=== PATIENT | female | born 1960 | race Caucasian/White ===

== ENCOUNTER 2023-10-25 11:01 | Outpatient (OUT) | payer OTHER, SELFPAY ==
--- NOTE | 2023-10-25 11:05 | MM_ITS ---
Patient Name: MIRI CONTRERAS MR#: [id number] : 1960 Exam Date: 10/25/2023 Ordering Doctor: DR DEYSI MONTES [facility] REPORT PROCEDURE: MM TOMOSYNTHESIS SCREENING BI COMPARISON: MG MAMM SCREEN 3D JACY CAD, 10/22/2022. MG MAMM SCREEN 3D JACY CAD, 10/16/2021. MG MAMM SCREEN JACY W CAD, 10/14/2020. MG MAMM JACY SCRN W CAD DIG, 09/04/2013. INDICATIONS: Screening Calculator Name NCI Breast Cancer Risk Assessment Tool 5 Year Breast Cancer Risk 3.20% Lifetime Breast Cancer Risk 12.40% Personal Breast Cancer No Personal Ovarian Cancer No Treatments None Family Cancers Mother with breast cancer at age 79; Mother with lung cancer at age 82. LOCATION: [facility] BREAST COMPOSITION: Heterogeneously dense,which may obscure small masses. FINDINGS: DIAGNOSTIC CATEGORY 1--NEGATIVE. RIGHT BREAST: No significant suspicious finding. No significant change has occurred. LEFT BREAST: No significant suspicious finding. No significant change has occurred. RECOMMENDATIONS: ROUTINE MAMMOGRAM AND CLINICAL EVALUATION IN 12 MONTHS. PLEASE NOTE: A NORMAL MAMMOGRAM DOES NOT EXCLUDE THE POSSIBILITY OF BREAST CANCER. A CLINICALLY SUSPICIOUS PALPABLE LUMP SHOULD BE BIOPSIED. Dictated by: Alirio Barba M.D. on 10/25/2023 at 14:23 Approved by: Alirio Barba M.D. on 10/25/2023 at 14:25
== END 2023-10-25 11:02 | disposition home or self-care (01) ==
LOC: MAMMO 11:01
PROVIDERS: PCP Family Medicine; Visit Provider Obstetrics & Gynecology
DX: Z12.31 Encounter for screening mammogram for malignant neoplasm of breast (principal); Z80.3 Family history of malignant neoplasm of breast; Z80.1 Family history of malignant neoplasm of trachea, bronchus and lung
CPT/HCPCS: 77063; 77067

== ENCOUNTER 2024-10-26 10:28 | Outpatient (OUT) | payer MEDICARE, SELFPAY ==
--- NOTE | 2024-10-26 10:31 | MM_ITS ---
Patient Name: MIRI CONTRERAS MR#: [id number] : 1960 Exam Date: 10/26/2024 Ordering Doctor: DR DEYSI MONTES [facility] REPORT PROCEDURE: MM TOMOSYNTHESIS SCREENING BI COMPARISON: MM TOMOSYNTHESIS SCREENING BI, 10/25/2023. MG MAMM SCREEN 3D JACY CAD, 10/22/2022. MG MAMM SCREEN 3D JACY CAD, 10/16/2021. MG MAMM JACY SCRN W CAD DIG, 09/04/2013. INDICATIONS: Screening Calculator Name NCI Breast Cancer Risk Assessment Tool 5 Year Breast Cancer Risk 3.30% Lifetime Breast Cancer Risk 12.00% Personal Breast Cancer No Personal Ovarian Cancer No Treatments None Family Cancers Mother with breast cancer at age 79; Mother with lung cancer at age 82. LOCATION: [facility] BREAST COMPOSITION: There are scattered areas of fibroglandular density. FINDINGS: RIGHT BREAST: No significant suspicious finding. LEFT BREAST: No significant suspicious finding. DIAGNOSTIC CATEGORY 1--NEGATIVE. NO CHANGE FROM COMPARISON ASSESSMENT. RECOMMENDATIONS: ROUTINE MAMMOGRAM AND CLINICAL EVALUATION IN 12 MONTHS. PLEASE NOTE: A NORMAL MAMMOGRAM DOES NOT EXCLUDE THE POSSIBILITY OF BREAST CANCER. A CLINICALLY SUSPICIOUS PALPABLE LUMP SHOULD BE BIOPSIED. Dictated by: Farhat Block DO on 10/26/2024 at 15:22 Approved by: Farhat Block DO on 10/26/2024 at 15:26
--- OUTSIDE RECORDS SUMMARY | 2024-10-26 10:46 | XMS_ITS | CCD ---
Author Organization [facility] Care Team Providers Care Materials Coordinator Name Role Phone LEANNA, DR ALIRIO Weston Consulting Unavailable CLARIBEL, DR DOMINGO Primary Care Unavailable FALGUNI, DR JO Attending Unavailable PRINTY, DR JO Admitting Unavailable PRINTY, DR JO Consulting Unavailable Radha BRENNER, Chalrotte Munroe Primary Care Provider Deysi Ferrer MD Unavailable DEYSI FERRER Attending Unavailable CHHAYA ALVARADO Attending Unavailable DEYSI FERRER Attending Unavailable PRINTYDEYSI Attending Unavailable Gonya, Charlotte Primary Care Unavailable Sher PAC, Andrey N Admitting Unavailable Sher PAC, Andrey N Attending Unavailable ISSAC Dutton Admitting Unavailable Gonya, Charlotte Primary Care Unavailable Nacho Lange Attending Unavailable Gonya, Charlotte Primary Care Unavailable Gonya, Charlotte Admitting Unavailable Gonya, Charlotte Attending Unavailable Gonya, Charlotte Primary Care Unavailable Gonya, Charlotte Admitting Unavailable Gonya, Charlotte Attending Unavailable Gonya, Charlotte Primary Care Unavailable Gonya, Charlotte Attending Unavailable Gonya, Charlotte Attending Unavailable Gonya, Charlotte Primary Care Unavailable Gonya, Charlotte Attending Unavailable Gonya, Charlotte Primary Care Unavailable Allergies Allergy Classification Reported Allergen(s) Allergy Type Date of Onset Reaction(s) Facility (14 sources) Amoxicillin Drug Allergy 4 Unknown [facility] (15 sources) Codeine; Translations: [codeine] Drug Allergy 7 Other, Unknown [facility] (9 sources) Amoxicillin-Pot Clavulanate Drug Allergy 3 GI intolerance, Nausea Only, Unknown [facility] (1 source) Amoxicillin / Clavulanate; Translations: [Augmentin] Drug Allergy [facility] Repository Medications Current Medications Medication Drug Class(es) Dates Sig (Normalized) Sig (Original) [id number] 200 actuat albuterol 0.09 mg/actuat metered dose inhaler (14 sources) beta2-Adrenergic Agonist Start: 02-05-2023 take 1 puff(s) by mouth every six hours as needed for wheezing albuterol HFA 90 mcg/act inhaler INHALE 1 PUFF BY MOUTH EVERY 6 HOURS NEEDED FOR WHEEZING 02/05/2023 Active beta carotene 15 mg oral capsule (14 sources) Start: 10-04-2022 beta carotene (Vitamin A) 15 MG capsule 15 mg 10/04/2022 Active estradiol 0.01 mg vaginal insert (7 sources) Estrogen Start: 10-13-2024 estradiol (Vagifem) 10 MCG tablet vaginal tablet Indications: Postmenopausal atrophic vaginitis 1 tab intravaginally twice a week 24 tablet 3 10/13/2024 Active Start: 10-13-2024 estradiol (Vag ifem) 10 MCG tablet vaginal tablet Indications: Postmenopausal atrophic vaginitis 1 tab intravaginally twice a week 24 tablet 3 10/13/2024 Active Start: 07-22-2024 End: 10-13-2024 estradiol (Vagifem) 10 MCG t ablet vaginal tablet Indications: Postmenopausal atrophic vaginitis 1 tab intravaginally twice a week 24 tablet 3 07/22/2024 10/13/2024 Discontinued (Reorder) fluticasone propionate 0.05 mg/actuat metered dose nasal spray (8 sources) Corticosteroid Start: 03-09-2024 take 1 spray(s) nasal route twice daily fluticasone (Flonase) 50 MCG/ACT nasal spray USE 1 SPRAY(S) IN EACH NOSTRIL TWICE DAILY FOR 7 DAYS 03/09/2024 Active 30 actuat fluticasone furoate 0.1 mg/actuat / umeclidinium 0.0625 mg/actuat / vilanterol 0.025 mg/actuat dry powder inhaler (16 sources) Anticholinergic, Corticosteroid, beta2-Adrenergic Agonist Start: 05-25-2024 End: 05-25-2025 take 1 puff(s) by inhalation once daily Fluticasone-Umecl idin-Vilant (Trelegy Ellipta) 100-62.5-25 MCG/ACT aerosol powder Indications: Moderate persistent asthma with acute exacerbation (CMS/HCC) Inhale 1 puff Daily 1 each 05/25/2024 05/25/2025 Active Start: 08-13-2023 End: 08-12-2024 take 1 puff(s) by inhalation in the morning Biuinwfnngg-Hmbmsgciu-Pfjdfn (Trelegy Ellipta) 100-62.5-25 MCG/ACT aerosol powder Indications: Moderate persistent asthma with acute exacerbation (CMS/HCC) Inhale 1 puff in the morning. 1 each 08/13/2023 05/25/2024 Discontinued (Reorder) ipratropium bromide 0.042 mg/actuat metered dose nasal spray (14 sources) Anticholinergic Start: 09-25-2023 End: 12-24-2023 take 2 spray(s) nasal route in the morning, then take 2 spray(s) nasal route in the evening, then take 2 spray(s) nasal route at bedtime ipratropium (Atrovent) 0.06 % nasal spray Indications: Chronic rhinitis Administer 2 sprays into each nostril in the morning and 2 sprays in the evening and 2 sprays before bedtime. 15 mL 11 09/25/2023 Active Lactobacillus (14 sources) Start: 10-04-2022 take 1 tablet by mouth in the morning Lactobacillus (Acidophilus Probiotic) 10 MG tablet Take 1 tablet by mouth in the morning. 10/04/2022 Active Start: 10-04-2022 take 1 tablet by sharla th in the morning Lactobacillus (Acidophilus Probiotic) 10 MG tablet Take 1 tablet by mouth in the morning. 0 10/04/2022 Active levocetirizine dihydrochloride 5 mg oral tablet (8 sources) Histamine-1 Receptor Antagonist Start: 03-09-2024 take 1 tablet by mouth in the evening levocetirizine (Xyzal) 5 MG tablet TAKE 1 TABLET BY MOUTH IN THE EVENING FOR 14 DAYS 03/09/2024 Active levothyroxine sodium 0.05 mg oral tablet (14 sources) l-Thyroxine Start: 06-12-2022 take 1 tablet by mouth once daily levothyroxine (Synthroid, Levoxyl) 50 MCG tablet 1 tab(s), PO, Daily, # 30 tab(s), 0 Refill(s), Pharmacy: [id number], 1 tab(s) PO Daily 06/12/2022 Active lisinopril 10 mg oral tablet (14 sources) Angiotensin Converting Enzyme Inhibitor take 1 tablet by mouth twice daily lisinopril 10 MG tablet take 1 tablet (10MG) by Oral route 2 times every day Oral Active predniSONE 20 mg oral tablet (11 sources) Start: 10-09-2023 End: 07-22-2024 take 1 tablet by mouth once daily predniSONE (Deltasone) 20 MG tablet Indications: Moderate persistent asthma with acute exacerbation (CMS/HCC) TAKE 1 TABLET BY MOUTH ONCE DAILY FOR 5 DAYS 10 tablet 10/09/2023 07/22/2024 Discontinued (Ineffective) Start: 01-08-2023 take 1 tablet by sharla th once daily predniSONE (Deltasone) 20 MG tablet TAKE 1 TABLET BY MOUTH ONCE DAILY FOR 5 DAYS 0 01/08/2023 Active simvastatin 4 mg/ml oral suspension (14 sources) HMG-CoA Reductase Inhibitor Start: 09-03-2022 Simvastatin 20 MG/5M L suspension 09/03/2022 Active triamcinolone acetonide 1 mg/ml topical cream (20 sources) Corticosteroid Start: 10-13-2024 End: 10-13-2025 triamcinolone (Kenalog) 0.1 % cream Indications: Lichen sclerosus et atrophicus Apply topically Daily 28 g 2 10/13/2024 10/13/2025 Active Start: 06-10-2024 End: 06-10-2025 triamcinolone (Kenalog) 0.1 % cream Indications: Lichen sclerosus et atrophicus Apply topically Daily 30 g 2 06/10/2024 10/13/2024 Discontinued (Reorder) Start: 05-25-2024 End: 06-06-2024 triamcinolone (Kenalog) 0.1 % cream Indications: Allergic contact dermatitis due to plants, except food Apply topically 2 (two) times a day for 12 days Do not apply to face. 45 g 2 05/25/2024 06/06/2024 Active Start: 11-16-2022 End: 06-10-2024 Triamcinolone Acetonide 0.02 5 % lotion APPLY LOTION TO AFFECTED AREA ON NECK AND ARMS TWICE DAILY FOR 14 DAYS. AVOID FACE AND GROIN 11/16/2022 06/10/2024 Discontinued Problems Problem Classification Problem Date Documented Date Episodic/Chronic Allergic reactions (16 sources) Flexural atopic dermatitis; Translations: [Other atopic dermatitis] Onset: 01-21-2023 01-21-2023 Chronic Allergic reactions (2 sources) Allergic contact dermatitis caused by plant material; Translations: [Allergic contact dermatitis due to plants, except food] 05-25-2024 Episodic Asthma (18 sources) Exacerbation of moderate persistent asthma; Translations: [Moderate persistent asthma with (acute) exacerbation] Onset: 01-21-2023 01-21-2023 Chronic Menopausal disorders (4 sources) Atrophic vaginitis; Translations: [Postmenopausal atrophic vaginitis] 07-22-2024 Chronic Other female genital disorders (2 sources) Pain in female genitalia on intercourse; Translations: [Unspecified dyspareunia] 07-22-2024 Chronic Other female genital disorders (2 sources) Vaginal irritation; Translations: [Other specified noninflammatory disorders of vagina] 06-10-2024 Episodic Other inflammatory condition of skin (4 sources) Pruritus of vulva; Translations: [Pruritus vulvae] 06-10-2024 Episodic Other nervous system disorders (2 sources) Impairment of balance; Translations: [Other abnormalities of gait and mobility] 05-25-2024 Episodic Other screening for suspected conditions (not mental disorders or infectious disease) (8 sources) Encounter for screening mammogram for malignant neoplasm of breast; Translations: [Cancer cervix screening status] Onset: 10-22-2022 Episodic Other skin disorders (6 sources) Lichen sclerosus et atrophicus; 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-2024 Chronic Other upper respiratory infections (2 sources) Viral upper respiratory tract infection; Translations: [Acute upper respiratory infection, unspecified] 05-25-2024 Episodic Residual codes; unclassified (1 source) Family history of malignant neoplasm of breast; Translations: [FAMILY HX MALIG NEOPLASM OF BREAST] Onset: 10-25-2022 Episodic Results Test Name Value Interpretation Reference Range Facility Coding Summaryon 07-14-2024 Coding Summary HTMLBase 64 VdvjemadGQa5uJu+PGhlY WQ+WB8DKDJoA14upCDopU 9vL5XFFXcTMpbzHOXSVFx ZPnZxumIgDZ4quZJoOTTm IC8+EV8zLFCyLtxvpDWsl 2V2qAK1F94dyv2zVBtibD U2NUXmNuRmeviez7fljXl 6IDcuNmluOyBt FPRqeT21SNA7kU98Br54x SMifCMdp1jdhTn3NfQnIP ItTDV5zOgxHMjar6BzJKF wS70osMXmr4D4 LCVivHhbbYFnCdRtdUK8t D1oZPpbgzfzk6qiyombXy c1lj92nMGds6T3eDJ4X4P jcxK6CVTnzHVz PlbcwSCVaJ5ihzjpn5bzi xisUiRqBQKbFOb5WKs3LB ZweMdkXcPzUM96OCT6SOO ocxEqE7KvKDLq gXftLwJ1m9P8Bg1BB9CYC vhhY2GHAIZCDTmdkZR+PC 54nq28D2DrZtrcZgv9YYH uGMO2zJF4xH1o NQNxIRjjr3E1wRY4T7Uyp vBppu1me6wsVVVvGJmkB9 8taMFab2M2KQIkyRG2VYH vqUcbQuTwxO61 Oyc+CNOpcQejt8HrDhjwz 0ioz7hjyNe8ZfwsSZNgjw SpsObvHFP9k2IaOz7cWGK ewTF2gEC5pF3j SvErQyV8WClqX971EaBwk QCtVzxwC68uG4GsiQS+PH ArFzl8PBNleGywAN6wC4C hZGRpbmctbGVm ySpuAF8wALCytuymMONlf A3xIZIsJ9f4FdUfPzH5FB rpS6XwMXKwwpvcLh11kM3 oFyOzQqO4JNdf Z6HtstP6KIBeyRZbAQzsI NU0J47ce8J9BMVzKAUlHA T3bCZ3lI6knKkkaidcmUO mdDsgdmVydGlj FNrwHZluH234VVZerLtdL kNvZGluZyBEYXRlOiAgMT EvMTIvMjAyNDwvdGQ+PHR uQHD5wJxvAXAj jMAcFKziLh1arInbxZdpA H4lLCYlwdhnWGQziO5oNH VpyYTbrPvhNP1tRGZaisp em942DlSpCTQ9 ZPHqoJXmB3ZrzT9eDhApL UZaOEGlP6TelAFwRVibO9 65EVnnAkY4UIGjhsRfQ0B sLWFsaWduOiB0 h2A3Ka2He0JgzpsbN2Gor FGfAxHhYadsLCq0T0KhRj wvdHI+IL24EURqNJ30ATp 3WBG6cLjpZBck QJYqE1ZgwN9uXdQhTRKdP GRkOyc+PHRhYmxlIHdpZH RoPScxMDAlJyBzdHlsZT0 yFy3bLYYiQBRo pCmmhPShEaLvw9maXSVrV IzmTE3ukFepM3UvsKR9CG Mdd4a1Vg72C27gC4NfhFB +HTYzdUC0cDX0 nA5mYgLiPrM1XSibC943L dCpmXKeQauoc2pon4bgbT s0MwC3FMOalqLnrFgtHLH 2t1WcWz88I18e IHdpZHRoPSIxNSUiIHZhb Ubadw3ayZ5sAw0+PGNvbC Q4hAV4mR2zYpTxWtX6PTe eU596SqTbyJGw Zvjbc8ors1qhiEr1TgVvJ QRpneMuhPtjYRM5a8WfLk 23X9ZbpKwby3XvCby4ff3 4kNBew9O3dFK4 L2AjOWNqxzlfdQUrbMrsA N6rXGUjonfpZBFrgC5wQR VsO2w1VqPfTfG2UMjtC8Q ybuX4NZSeoLMf NVJhaFTJbE7obrpvv8jtw colMaXrJJRfCVx9LVb5OL CrhKxcQoScQVY3TdP7YKX 5qOTmtE7bfCsz ewlvkA6nRlk+UJZ6nABqc SRCDL6vEzxqyHS+PHRkIH E1zSoaUXfvJXKpnV7qPKJ cS1e2XsKjDaL2 WUnmE0RvmdA6EGXlaUXkD TNplQANmS7ctcgcl0mexw arNlSoDBAgZTg2AOg1DVV saWduOiBsZWZ0 TuQ7XQB0bFCjjB6vaJzhd ogntF6nFzy+QmlydGggRG E3SDo3V3GjOya8HZQloSf hVI1zlFFxHDad Lx3eeXooaSdePT6xXICxg rfig037UtSze6ldVJLidS ZlRInqWOY9W48wh4W7FQI jUFKpXFR7cXA4 vE5fxDczstbjuBRpdAmqz kNhlXciXCpmXRicG384YS ExrRbxYlQbUIn4I6FtZcx 0PVWnfWwvUA9t uINmYSnaUr5kiPmzkFqqX T9mLUJfqxyxt216GqZxk6 lpATUlaJLgNZllWRD6I25 mh5I8EHCtFADf WFD2qIN0aN5ytSaqnotaf GVmdDsgdmVydGljYWwtYW hdH526MCEkjSjuDsPduRj 9Z9YdFsz5VIOl bXkjFL9qwGAdORduRf7yw MklwQldGC6jJKTrbvkzo2 64MpMln1mfTFEnzDFlJXb vYTN7O79xt4Y4 JZKxNIXmEDU2uBB2hA9gr GlnbjogbGVmdDsgdmVydG jvNFjtPYmzW894AVTfhLg nPlBhdGllbnQg ABxkEOi9X0PfErsftID+P R62UVPkVE65iJEqbZWii4 jccSd8JdIaGJTyQFY6dFm fZZmbo6HtCLWj P16nuMFst6L1RQYxhKtei DCuFkUggCG8cX1tOJpgbt uqp8hmxrcgBlwli8xsqn7 4pC14Z29zGFgs ZHRoPSIzMCUiIHZhbGlnb s5jdI5lQi4+TIPcmYA6eT W1hX5bHENqHjR8NXpmN27 9InRvcCIvPjxj x2cml6wjnDe6EbA7GBVmv aYrjLbcUTP3v9WmZd95R3 9sIHdpZHRoPSIyMCUiIHZ fgOqcpx4pjP8e Ii8+NQEpiEF1iQY4aM1rB eCoCmP8AUfbV626GrHmcC VlGuuvP00eQ5VefNU+PHR eAjq4VAYicNmu KX6vdMZbCLiuPh0bFMZ2R hLyErOsBIlkM0KeONAabc zuhgfhxKB4PKEaFXHxcG0 3Qc7grPsbTUDw xARJuJ2okzhek4isaidoR yAmQVLrUTk9RPj1MBZdrX gaOlJtHZV6VhW3GPN9yJB faW8obCibvwuw fQ9vJ4MwRNUzbscqTp39u Q4sLaBnNzP4OFcoDlx+Uk 2ZUQ4XRFCARGiYVLVZKE2 6ME38mKOgw4R6 oGM5E0HmNIDlyiikublsr PN3WHHdYZXrvO69uGMnOK bfCg3pv8C8i175WRAoMZO seH24Fn4yrXsr GBZtdZBAjE6cverno8ohp gzwRaIsVQSaYMd5UTj2HY PcyRhsLwNeOUW6TgY6RMC 3xEAcrD4maKra gsjfcD8kKhh+MDUvMjcvM Xh0LShzpYJ+XDCuGVQ0gI ckPCafWPXxhJ2xFQUeW9v 7AkUgRcU8RKkq X0WtGFSbqyxiUh52jB7wM tSzQoH0ODiyM1KxzoY0QV TutZShKSihQIB6J58ri9X 4NTViOBRrCPS1 sJV0aB8tzUnrjddtfWQcy DsgdmVydGljYWwtYWxpZ2 52OSJcoNivLzK4WAknNTA zNY00MA37kFWz l8E4pSI5C8BjBQLsjymxs kwmzTN3UKEfLBJmfC19fV IcUDfbSj0ta0Y2d584OKA aPGRayH18Ex4m dColZLXraFYAlI8mqctpk 3skrmwyBaQrRLRlLGq1NA b1JSVdnYrbIqHmYJU1WtH 1TLW8wHXvwV1y sOxblcujaT3jPoo+RkVNQ OcTEL12IS81xSTyu1P9fP V0U6NpDHWahtsieleqdRB 4VUQeSZTsfD87 eXXpDXycLy5lu0K8g889W AYfOYCsgP99Kq8faFqfVK TepIBLhV4nqwbdi6yaebv gIzAwMDAwMDt0 OHp5SOTnvWfiGsDkLAB8L dU8UPX3tDSovR7muGfvqt bdjS9jRli+Z7F7Y4ZuGxt vdHI+TQ76UVQe OC06hHGfrZWcc4mplIy8Q qJqLEStAHN6aMwsYQuqg3 AiXWScS47qpAQty9O1NGD vbGxhcHNlOyBl wXE5eE3wDTsrctysm7uto pyeEageb5fpic48jI17T7 9sIHdpZHRoPSIzMCUiIHZ vgKzjmu3sqY6o Ii8+JGLozUE0oDH4eV3gW iCuHiZ6MLekP210IsKgyX EpVilui7ipg9qinPj0WkW wJSIgdmFsaWdu DYF2d0XwBb39Y54vOQfqQ HRoPSIyMCUiIHZhbGlnbj 1haK8xYx2+HF2dy8ztee7 5qD18lVI+PHRk ASJ3tHxnHBrtJWWdkT3xZ PyaYxL0KRKeMoOliT09wG OvMCjkVb6sjRbqgLopSA7 bCOIrfmlav637 JhNmr5ayASFkwRMzXSsbP KA3U52au2S2CWGmMYXuGR L3bVY0uT7axEuaukmkwBZ mdDsgdmVydGlj GDdnZVlqJ219NHIzlBkoZ bPafYOmK8xltbQVYD5sMc wvdGQ+NJYoZBV8xJihGYo aJYVryS1mLURr L1h4KjBsZbH4ZOvrZ4Xwc cM6NJKscTUqOETmnIYGcD 5qhluaj2twxpokZbIcJUC mZDi8THe1AEEx fHhqIoZhXRE8CqB7HQL0n VOurV4dqIsjarasjB4kYs c+RklOOjwvdGQ+PHRkIHN 0eWxlPSdwYWRk tK6fTJXvB0m6AaPxMkV8K ZnzC4VwqzH7SJNiiVFmRY AftNQDvH7apzgvk3vhhsz gIzAwMDAwMDt0 QYk9XRVjjRimHnNkUAX3P cB3IHU0kHEnnJ9zvGcham ldrN3lUxd+TVJOOjwvdGQ +PYYdIAG6bTqc OUynVIFvlE0cXGBfZ3p4B hJtHuG2JZztX1XdteY2TJ RryQKdLTVxhYYVbL2cdzr uw3yhaeksWyYv GVDpWIy3FRe4CBCapQbeP tQfUQM0LhD7UUK8aHWntB 4wmFaunhjzrU6qNvg+UGF 8MNG8YH06MZ14 K6GfHkxssHIbjAV+PHRhY mxlIHdpZHRoPScxMDAlJy FcgCjqZS5eNh6sOJRtJGW vbGxhcHNlOiBj b2x (more content not included)... Normal [facility] Standardon 07-08-2024 eGFR Non AA >60 Invalid Interpretation Code [facility] Comment on above: Performed By: #### 2 [id number], [id number], [id number] ####[facility] (DEFAULT)[address] [place] [address] eGFR AA >60 Invalid Interpretation Code [facility] Comment on above: Performed By: #### 2 [id number], [id number], [id number] ####[facility] (DEFAULT)[address] [place] [address] 86001 Albumin [Mass/Vol] 4.1 g/dL Normal 3.5-5.0 [facility] Comment on above: Performed By: #### 2 [id number], [id number], [id number] ####[facility] (DEFAULT)[address] [place] [address] 06120 Albumin/Globulin [Mass ratio] 1.5 {ratio} Normal 1.4-2.6 [facility] Comment on above: Performed By: #### 2 [id number], [id number], [id number] ####[facility] (DEFAULT)[address] [place] [address] 08810 Alk Phos 53 IU/L Normal 32-91 [facility] Comment on above: Performed By: #### 2 [id number], [id number], [id number] ####[facility] (DEFAULT)[address] [place] [address] 47047 ALT [Catalytic activity/Vol] 16.0 U/L Normal 14.0-54.0 [facility] Comment on above: Performed By: #### 2 [id number], [id number], [id number] ####[facility] (DEFAULT)[address] [place] [address] 54153 Anion gap [Moles/Vol] 11.0 mmol/L Normal 5.0-19.0 [facility] Comment on above: Performed By: #### 2 [id number], [id number], [id number] ####[facility] (DEFAULT)[address] [place] [address] 29422 AST [Catalytic activity/Vol] 19 U/L Normal 15-41 [facility] Comment on above: Performed By: #### 2 [id number], [id number], [id number] ####[facility] (DEFAULT)[address] [place] [address] 40839 Bili Total 0.9 mg/dL Normal 0.3-1.2 [facility] Comment on above: Performed By: #### 2 [id number], [id number], [id number] ####[facility] (DEFAULT)[address] [place] [address] 10866 Calcium [Mass/Vol] 9.3 mg/dL Normal 8.9-10.3 [facility] Comment on above: Performed By: #### 2 [id number], [id number], [id number] ####[facility] (DEFAULT)[address] [place] [address] 54672 Chloride [Moles/Vol] 104 mmol/L Normal 101-111 [facility] Comment on above: Performed By: #### 2 [id number], [id number], [id number] ####[facility] (DEFAULT)[address] [place] [address] 47049 CO2 [Moles/Vol] 26 mmol/L Normal 21-32 [facility] Comment on above: Performed By: #### 2 [id number], [id number], [id number] ####[facility] (DEFAULT)[address] [place] [address] 04688 Creatinine [Mass/Vol] 0.88 mg/dL Normal 0.60-1.30 [facility] Comment on above: Performed By: #### 2 [id number], [id number], [id number] ####[facility] (DEFAULT)[address] [place] [address] 23697 Globulin (S) [Mass/Vol] 2.7 g/dL Normal 1.5-4.3 [facility] Comment on above: Performed By: #### 2 987508, [id number], [id number] ####[facility] (DEFAULT)[address] [place] [address] 11838 Glucose [Mass/Vol] 92.0 mg/dL Normal 74.0-118.0 [facility] Comment on above: Performed By: #### 2 077039, [id number], [id number] ####[facility] (DEFAULT)[address] [place] [address] 40766 Osmolality 274 mOsm/L Invalid Interpretation Code [facility] Comment on above: Performed By: #### 2 [id number], [id number], [id number] ####[facility] (DEFAULT)[address] [place] [address] 47394 Potassium [Moles/Vol] 4.0 mmol/L Normal 3.6-5.1 [facility] Comment on above: Performed By: #### 2 375076, [id number], [id number] ####[facility] (DEFAULT)[address] [place] [address] 23805 Protein [Mass/Vol] 6.8 g/dL Normal 6.5-8.1 [facility] Comment on above: Performed By: #### 2 391421, [id number], [id number] ####[facility] (DEFAULT)[address] [place] [address] 51686 Sodium [Moles/Vol] 137.0 mmol/L Normal 136.0-144.0 [facility] Comment on above: Performed By: #### 2 865970, [id number], [id number] ####[facility] (DEFAULT)[address] [place] [address] 01065 Urea nitrogen [Mass/Vol] 14 mg/dL Normal 8-26 [facility] Comment on above: Performed By: #### 2 [id number], [id number], [id number] ####[facility] (DEFAULT)[address] [place] [address] 81121 Urea nitrogen/Creatinin e [Mass ratio] 15.9 mg/mg Normal 4.6-16.2 [facility] Comment on above: Performed By: #### 2 [id number], [id number], [id number] ####[facility] (DEFAULT)[address] [place] [address] 33060 Lipid Panel Standardon 07-08 Cholesterol [Mass/Vol] 118.0 mg/dL Normal 66.0-200.0 [facility] Comment on above: Performed By: #### 2 [id number], [id number], [id number] ####[facility] (DEFAULT)[address] [place] [address] 27482 Cholesterol in HDL [Mass/Vol] 49 mg/dL Normal 40-71 [facility] Comment on above: Performed By: #### 2 [id number], [id number] ####[facility] (DEFAULT)[address] [place] [address] 89661 Cholesterol in LDL [Mass/Vol] 54 mg/dL Normal 1-100 [facility] Comment on above: Performed By: #### 2 [id number], [id number], [id number] ####[facility] (DEFAULT)[address] [place] [address] 07470 Cholesterol.total/ Cholesterol in HDL [Mass ratio] 2.4 {ratio} Normal 0.0-4.5 [facility] Comment on above: Performed By: #### 2 [id number], [id number], [id number] ####[facility] (DEFAULT)[address] [place] [address] 81007 Triglyceride [Mass/Vol] 77.0 mg/dL Normal 0.0-150.0 [facility] Comment on above: Performed By: #### 2 [id number], [id number], [id number] ####[facility] (DEFAULT)[address] [place] [address] 93297 VLDL. 15 mg/dL Normal 5-40 [facility] Comment on above: Performed By: #### 2 [id number], [id number], [id number] ####[facility] (DEFAULT)[address] [place] [id number] Reminder Messageson 07-08-20 24 Reminder Messages - From: Charlotte Garcia APRN, STAFF CYTOTECHNOLOGIST To: [facility] ([email or web address]); Sent: 07/08/2024 13:01:34 EST ! Show up: 07/08/2024 13:01:34 EST Subject: Results Follow Up Actions: Call the patient with result(s) Due Date/Time: 07/09/2024 13:01:00 EST Reminder Comments: ok Results: Date Result Name Value Ref Range 07/08/2024 7:09 Sodium Level 137.0 mmol/L (136.0 - 144.0) 07/08/2024 7:09 Potassium Level 4.0 mmol/L (3.6 - 5.1) 07/08/2024 7:09 Chloride Level 104 mmol/L (101 - 111) 07/08/2024 7:09 CO2 26 mmol/L (21 - 32) 07/08/2024 7:09 Anion Gap 11.0 mmol/L (5.0 - 19.0) 07/08/2024 7:09 Glucose Level 92.0 mg/dL (74.0 - 118.0) 07/08/2024 7:09 BUN 14 mg/dL (8 - 26) 07/08/2024 7:09 Creatinine Level 0.88 mg/dL (0.60 - 1.30) 07/08/2024 7:09 BUN/Creat Ratio 15.9 (4.6 - 16.2) 07/08/2024 7:09 eGFR AA >60 mL/min/1.73m2 07/08/2024 7:09 eGFR Non AA >60 mL/min/1.73m2 07/08/2024 7:09 Calcium Level 9.3 mg/dL (8.9 - 10.3) 07/08/2024 7:09 Bili Total 0.9 mg/dL (0.3 - 1.2) 07/08/2024 7:09 Alk Phos 53 IU/L (32 - 91) 07/08/2024 7:09 AST/SGOT 19 IU/L (15 - 41) 07/08/2024 7:09 ALT/SGPT 16.0 IU/L (14.0 - 54.0) 07/08/2024 7:09 Protein Total 6.8 gm/dL (6.5 - 8.1) 07/08/2024 7:09 Albumin Level 4.1 gm/dL (3.5 - 5.0) 07/08/2024 7:09 Globulin 2.7 gm/dL (1.5 - 4.3) 07/08/2024 7:09 A/G Ratio 1.5 (1.4 - 2.6) 07/08/2024 7:09 Osmolality 274 mOsm/L 07/08/2024 7:09 Cholesterol 118.0 mg/dL (66.0 - 200.0) 07/08/2024 7:09 HDL 49 mg/dL (40 - 71) 07/08/2024 7:09 Chol/HDL Ratio 2.4 (0.0 - 4.5) 07/08/2024 7:09 LDL 54 mg/dL (1 - 100) 07/08/2024 7:09 Trig 77.0 mg/dL (0.0 - 150.0) 07/08/2024 7:09 VLDL. 15 mg/dL (5 - 40) 07/08/2024 7:09 TSH 1.16 mcIU/mL (0.45 - 5.33) left voicemail for patient of results with office contact information for any questions. Normal [facility] TSHon 07-08-2024 TSH Qn 1.16 m[IU]/L Normal 0.45-5.33 [facility] Comment on above: Performed By: #### 2 [id number], [id number], [id number] ####[facility] (DEFAULT)[address] [place] [address] Patient Handouton 07-07-2024 Patient Handout Endocrinology Hypothyroidism Hypothyroidism is when the thyroid gland does not make enough of certain hormones. This is called an underactive thyroid. The thyroid gland is a small gland located in the lower front part of the neck, just in front of the windpipe (trachea). This gland makes hormones that help control how the body uses food for energy (metabolism) as well as how the heart and brain function. These hormones also play a role in keeping your bones strong. When the thyroid is underactive, it produces too little of the hormones thyroxine (T4) and triiodothyronine (T3). What are the causes? This condition may be caused by: ? Rito's disease. This is a disease in which the body's disease-fighting system (immune system) attacks the thyroid gland. This is the most common cause. ? Viral infections. ? . ? Certain medicines. ? defects. ? Problems with a gland in the center of the brain (pituitary gland). ? Lack of enough iodine in the diet. Other causes may include: ? Past radiation treatments to the head or neck for cancer. ? Past treatment with radioactive iodine. ? Past exposure to radiation in the environment. ? Past surgical removal of part or all of the thyroid. What increases the risk? You are more likely to develop this condition if: ? You are female. ? You have a family history of thyroid conditions. ? You use a medicine called lithium. ? You take medicines that affect the immune system (immunosuppressants). What are the signs or symptoms? Common symptoms of this condition include: ? Not being able to tolerate cold. ? Feeling as though you have no energy (lethargy). ? Lack of appetite. ? Constipation. ? Sadness or depression. ? Weight gain that is not explained by a change in diet or exercise habits. ? Menstrual irregularity. ? Dry skin, coarse hair, or brittle nails. Other symptoms may include: ? Muscle pain. ? Slowing of thought processes. ? Poor memory. How is this diagnosed? This condition may be diagnosed based on: ? Your symptoms, your medical history, and a physical exam. ? Blood tests. You may also have imaging tests, such as an ultrasound or MRI. How is this treated? This condition is treated with medicine that replaces the thyroid hormones that your body does not make. After you begin treatment, it may take several weeks for symptoms to go away. Follow these instructions at home: ? Take qhvm-tuk-pzogooz and prescription medicines only as told by your health care provider. ? If you start taking any new medicines, tell your health care provider. ? Keep all follow-up visits as told by your health care provider. This is important. ? As your condition improves, your dosage of thyroid hormone medicine may change. ? You will need to have blood tests regularly so that your health care provider can monitor your condition. Contact a health care provider if: ? Your symptoms do not get better with treatment. ? You are taking thyroid hormone replacement medicine and you: ? Sweat a lot. ? Have tremors. ? Feel anxious. ? Lose weight rapidly. ? Cannot tolerate heat. ? Have emotional swings. ? Have diarrhea. ? Feel weak. Get help right away if: ? You have chest pain. ? You have an irregular heartbeat. ? You have a rapid heartbeat. ? You have difficulty breathing. These symptoms may be an emergency. Get help right away. Call 911. ? Do not wait to see if the symptoms will go away. ? Do not drive yourself to the hospital. Summary ? Hypothyroidism is when the thyroid gland does not make enough of certain hormones (it is underactive). ? When the thyroid is underactive, it produces too little of the hormones thyroxine (T4) and triiodothyronine (T3). ? The most common cause is Rito's disease, a disease in which the body's disease-fighting system (immune system) attacks the thyroid gland. The condition can also be caused by viral infections, medicine, , or past radiation treatment to the head or neck. ? Symptoms may include weight gain, dry skin, constipation, feeling as though you do not have energy, and not being able to tolerate cold. ? This condition is treated with medicine to replace the thyroid hormones that your body does not make. This information is not intended to replace advice given to you by your health care provider. Make sure you discuss any questions you have with your health care provider. Document Revised: 08/21/2022 Document Reviewed: 08/21/2022 [employer] Patient Education ? 2023 [employer]. [facility] Coding Summaryon 03-24-2024 Coding Summary HTMLBase 64 RffsuiolAOo7gEl+PGhlY WQ+ZC6XUILuV76vqTDmbJ 9pY2KBTAxKIuplNILNIGa QYoUlopJpBV7iwOAvKYOy IC8+ZQ8zAEWsXsxhhWCci 9K0yJT8O02caj9sXWwwxI C3CSChZoLukyjjv4fbwPl 6IDcuNmluOyBt RMZtsW12WHE3eS95Lv22y KJdrBKqb0pngWy2NdQyXG TsAGZ8pWnvPHxdt8MuLQU hZ82fcSBeu2A9 TXLfoHhwpZLnZxIdpPS4n N8jRGbfrwsiw9odwllwOc j9av75uRMpl6P7nGZ7Y9P phoW4JUPkpHXd IzxmrNHImF0nezalh6lii qnoZiSaOTGzMGn9JYt4NL KtrFepNlPaXB45RHL2ISH afzIlQ4ZdKIKm nDchHtQ3z2F9Ew9PM7WCQ qfqB5PTLTJHOTzllEU+PC 42wg00V6CtZbxwKjt8RYV dPGB1aAN5sL6s WNAcFTtrq3F9xBL2K7Lvt sJdxe6jn6hdAZSbXPtjF9 3tlXRom6G8CWCvlSL1ANU voSzqYhCnhN80 Oyc+TLRizGwyi1OmDfhyx 8hiw1nmaCo6BpfmHAQfls HzyQklPOK6e8FdQh9lZNK tfKQ3cSP5wS7b ShUtAcG2HBjmU367MqUuw NFdEnqjS34mB3FysOU+PH QtCwu6BYZgmKjvAD3qP3R hZGRpbmctbGVm oLhwQE6lYNBmsiyuCQVie D5iBHCtB6r5ZhKpQoI1QV njI6JyHNUhhksfGw83nH0 lGnUePuA1EWsq C4RpvuV7ASAuvTFqRTesP OT8P30aj1N6QZGfPFSlEY I3nVR4eV9ykYyopkrvxJF mdDsgdmVydGlj LUgtAInvJ767QXWgxIaoK kNvZGluZyBEYXRlOiAgMD cvMjMvMjAyNDwvdGQ+PHR nHKK2yBxfZFEr uSJaSRhtAj5qhFgovAipV U3bEXLtskzvBRLafR9qTA DrqSVpeOelJH8lZQIakxs zj603GqQmQNN4 PFBmbFTtL0DzzR8yAzQnZ XLtJLYpC8YtyAYoJZpvI9 80LUlnNkR3NMIstjRcU8A sLWFsaWduOiB0 z3M3Gx8En5CgyxpeF5Sgm QPoWxBvSbsdSLs9A1NaTi wvdHI+YY36WIWoVQ25CAd 8FEM7lKyvBBdq JYIeM4NvbL6pKiSgHGCjB GRkOyc+PHRhYmxlIHdpZH RoPScxMDAlJyBzdHlsZT0 lHf1nMNNjJAKm kDgzdQWcYnRwz9upIJBpM WwzYR5fkGbxC5YymTM3TX Xau0l8Aa17P42eC2FeaMJ +ZMNatDF0tNK8 xW4xXpPqFaP1ZLquP826I fIjaJIjHoffh3kon8fqaU h5TqC1SQIptlLzpPerRIY 6o8ApKo74H85r IHdpZHRoPSIxNSUiIHZhb Pwrlq5nxQ6tOj6+PGNvbC B2bXP9yF2lPxZtKaG5IRc dO067BlPxtZGk Qdepd2psk6jpjFk0XkPzV SGgavWvuFoxMOC0f3NwOq 20B2YglLcxn8FwUka6pr5 2aVAvu3A1jMU2 T6FySVWfppucoBFghDyhO X4sHUKseowsDGYxpZ8fGR SdF5m6JcXqXnY8VAxoQ1E nqpB6IRHynVWe BVHpuDILuI0rcxbqj4wsf yxkCzSfXSKcZQk4ERz8ZW TqkQmnRrGmOBN9KbO8BQC 6pPBwaD2anFrm tnjujN8sUnh+RCY9aGShg JOJRU9yNmxjhUA+PHRkIH C5vCtaBDsqURZroX5nHFE sP1x1GxGiYjW2 JHmzO1NbjfT8CRFpuZXcG JHxhUGJaC6qwkkpo9cuxz teNbLuUOOhWCo2MKj0QDX saWduOiBsZWZ0 NjY3VKT1yUOvkM6jbTzop kymxY6iAbx+QmlydGggRG K1UQk1J7XfJxv5WODqeLs lLY0nwULoIBlf Pf4kjLyznQkrOX6sYJRbr niot205ObHvi6ngOQMglB JoZPjrKJN2Q19og0Y9BDC aEEAgARM3bYR2 jV0trNhiedvcbIFgzMxgf yAezCmoMNclHNqhY095DI OcaPxqUnVqGDz8E5HsZmm 3GHYrgQukYI4z mCWcRArrXf1jdFzrwPkkS W5nMPUehwumc415OeYme1 gaEIQiyMUfJEwyLIB3Q84 wb5P7VDSjYOZy ULD3jGS3pB4cfBhtrbdxf GVmdDsgdmVydGljYWwtYW taJ949AFNrlLqvWiXbpNx 9T4MrArd6INMi fRmpKB3bcNHnRAtjLe6za BiijKcnVD1kYCDkjrfwn7 90WeFdm7gnRKLszKWmAZb sGSC7B24xu6M2 EJZtYZIzGWL7gEB4xX9jn GlnbjogbGVmdDsgdmVydG jxSZrdVAmuK056UWSmmYt nPlBhdGllbnQg FUyePMh4V2PdVxtshTY+P L99BAAtVY00xYSebKJuv3 lcwJq5HmZaLWJyHNZ2kVo iNAixo0JcHEKz T95dwYQdh3A1CTTioVdya CMqSmAnqBB2tC7sFWzwit mep1tracalTvkbw6sfyd1 2bI35D83zOWbk ZHRoPSIzMCUiIHZhbGlnb z2lrA2mGn9+JXYjmHY1dJ W0iF1vBEWlKyU9ZBiqX19 9InRvcCIvPjxj c6xbl8vdqMh5HiJ5NETxb fVprEznBXT1p5SuTy25N3 9sIHdpZHRoPSIyMCUiIHZ guHwtcg8nwC7l Ii8+JYAvvBF7dFM7lV0eB eElYpL3JStoV845UgCdrS PvWnniW66hQ8SvjBP+PHR rIkn7KPWxoIip JG9oeKPfHMzmRk5rJAY2Z nXbQoNgNAmkZ6LnSTZiye sdmhipqQO2GWOzMTTrkT3 5Mr1xvRngKLFo uILIbA1gigejr6ewwihoW yTqCNHcIIk2AGl6FIQhsB txAfXsXGO4VzY1TGC5sOD ygV8zwEaxkxrz mE2zP5GlJDRjwcxfXp82b Z5iOlXcLaQ9NRdvQoa+Uk 2KNV4UNBEKYBtDLSEWZE6 2WT43oDOjn3K3 eIQ3N6DoTEFmgdmnbxkrp WG4WXKiAQEzbX07vONkSG yyIl5tq4H7t145FTGiFJS yiN29Il0wlBkz RKZhaVXLrZ6gzkeee1qmo hhaMqOlNFDtQHo6FQg8SF ChgVmhLyQyBCT5RmD5TMW 0dMNbjV1zbVzf rvxmvX8kXjq+MDUvMjcvM Wj3CAoqhUK+XRTnRZC3hN yqYDnnTBNbcU3dKYYjR9f 4BgDkCiI1CUwb D5SvOACpojlgGn27iA6dN vOdTzM7AKphE2JttfL0LP IltOXqHXufGCL6Y04io4B 0EORuBWWwDBH0 sXT3qQ7bwTipagjleXAhv DsgdmVydGljYWwtYWxpZ2 60IOWbjDjiCrP4CUepXQK lLX09YD59dTFy n1A3hHN7Z0CpYJEmpojci tehhSW2HKQsZFPllG49kC UfIAjnAe2km3N4m436MGO jELGoiZ14Kd9g aGmvCVGddFYMrV5euifbh 0tfqqgoRwNnMERbOFn5SN a6TGEvpOcaCsZaAYK5RaR 9WWD9vHEcrR4s fHgmssqwcZ8cVjy+RkVNQ HpGZS66WP04mCXsj2D1bL I6Q9GrIEFkurfamqxxhJF 0ZRKaRRMfrK60 wPMqVWjcMg8gy2C8u920B UHeWYGjkF97Sb4hmCgkZE UxcRVZoO9tylctm3gzkqh gIzAwMDAwMDt0 OHe7RKNhvUofFgNfMIX0A tZ1FXT4sBWgwW7fnVwjef akcS8xPnu+F6A3R6AhIrq vdHI+BU42LHSa PP01dTWjrUIvm6wifHo5T xNrTULoXSA7zEkhPClxp0 GbEUGbD80lwWSrz9H8DCZ vbGxhcHNlOyBl iRH2yO5bYRxflvsmx0wqf hbnUgngx4ijhh71vQ93M1 9sIHdpZHRoPSIzMCUiIHZ qiKpjdx8zsC7j Ii8+SBVnqIQ8yAQ4sJ3iG jPeJbB1TZlmM929MtLnuK TqRofnz3ckd7ghhWb6MmL wJSIgdmFsaWdu OAC7q3HhUh16H84mZWojT HRoPSIyMCUiIHZhbGlnbj 3fjA1kHp0+XH8bg5nedj9 4kB27jLU+PHRk IBQ4yCnmAQciPIQcnX3vG AatGgT4EUFcNlRvoZ35kT TsPRplBr2jySbgfCbrXU0 iIAZtggqur950 CyZra6qrAKDijHNoSTbqV TB9M57ph2F2NGOaEYHpGL X9mLR6qQ2emWhsxqlsvPU mdDsgdmVydGlj GJyqJMvjG779PJKxxGsdD nCzlCSdW0qblyFYVO8oGw wvdGQ+PCNoZTQ8zKpaWIf mLWLtiO8iRMWc S0a7EkZyMoU7UDhfD6Qez vD0YHNjrJPmWLLkbDHHqR 4dgkrow4ewesxgEtGsCFA vJTm6JWi0QFIy vJmyAhLcREF7AhD7DZR0x IKduH7neEoozuzneC8vEl c+RklOOjwvdGQ+PHRkIHN 0eWxlPSdwYWRk hT7xZKQeJ7a0LnJyQpQ8G BooP2QdfdI8DQFaxMFxFI AdeDWDbS8hboret5pbeqo gIzAwMDAwMDt0 YKv1DTJygEosVzTrVFH8B qT0GXE0iJXasW6woEypbp xnbI4uXps+TVJOOjwvdGQ +XIKrUJR0dDam OIogCOKbfU5jHQXbF7q2E hSjIeL9VIsiG3FurlP6BL HhrAOxICFlvIEMmM3ugng vk2yzrafmQyEq ALRtUNh5NIi3GREdoZieO zHmIOA5EpJ5HNS7eUUjzC 1zzCuiwaynjL9wPib+UGF 9YDX0ZE62LS38 Y0LaZpszyQUonNA+PHRhY mxlIHdpZHRoPScxMDAlJy AoyZjoSC9dSt2dHWJuXYE vbGxhcHNlOiBj b2x (more content not included)... Normal [facility] ED Clinical Summaryon 2023 ED Clinical Summary [facility] ? Urgent Care [address] [place], [place] [id number] Clinical Summary PERSON INFORMATION Name: TONG CONTRERASALEJANDRA Dalton Age: 64 Years Sex: FEMALE : 1960 MRN: Acct#: Visit Reason: UC - Sinus Pain or Congestion; UC - Sinus Pain or Congestion; CONGESTION Arrival: 03/09/2024 11:56:35 Discharge: 03/09/2024 13:41:00 LOS: 000 01:45 Check In: 03/09/2024 11:56:35 Checkout: 03/09/2024 13:41:00 [facility] [address] [facility] [address] PCP: Charlotte Garcia APRN, RASHID PROVIDER INFORMATION Provider Role Assigned Unassigned Aleida Serrano LPN ED Nurse 03/09/2024 12:04:37 Andrey Armendariz ED PA 03/09/2024 12:06:41 VITALS INFORMATION Vital Sign Triage Latest Temperature Tympanic Temperature Temporal Artery Pulse Rate O2 Sat 98 % 98 % Respiratory Rate Blood Pressure /79 mmHg /79 mmHg MEDICAL INFORMATION Medications Given: Allergy Information: Augmentin; codeine PHYSICIAN DOCUMENTATION DISCHARGE INFORMATION: Discharge Disposition: Home Discharge Location: Home PATIENT EDUCATION INFORMATION Instructions: Allergies, Adult; Allergic Rhinitis, Adult Follow-Up: With: Address: When: Charlotte Garcia [address] [phone] Business (1) Within 3 to 5 days Comments: You were diagnosed with uncontrolled allergies with symptoms of clear runny nose, congestion, sniffling. Vitals normal, no fevers. Cough is of the clearing type. Lung exam clear today. Sinuses without pain to palpation. -Begin Xyzal 5 mg once daily. (Stop Zyrtec) -Begin Flonase nasal spray a.m. and p.m. to help shrink the inflammation down in her nasal and sinus passages. -Begin prednisone 20 mg once daily for 5 days -Stop use of Afrin nasal spray. Do not use Afrin more than 2 days. This will cause rebound nasal swelling At this time there is no indication for an antibiotic, no signs of acute bacterial infection. Counseled patient on dangers of antibiotic use. Seek additional medical care if fever over 101.5, wheezing, shortness of breath, significant sinus pain as well as a greater than 7 days, worse in any way. DIAGNOSIS: Acute rhinitis; Nasal hypertrophy Patient Understands: Yes - Patient/family/caregi geoff verbalizes understanding of instructions given Comment: Normal [facility] ED Patient Summaryon 024 ED Patient Summary [facility] ? Urgent Care [address] [id number] PATIENT DISCHARGE INSTRUCTIONS Patient Information Name: NOLVIA CONTRERAS Age: 64 Years Date of : 1960 Reason For Visit: UC - Sinus Pain or Congestion; UC - Sinus Pain or Congestion; CONGESTION Arrival Time: 03/09/2024 11:56:35 Primary Care Physician: Charlotte Garcia APRN, CNP Attending Physician: Andrey Armendariz Comment: Patient Education With: Address: When: Charlotte Gonya [address] [place] [phone] Business (1) Within 3 to 5 days Comments: You were diagnosed with uncontrolled allergies with symptoms of clear runny nose, congestion, sniffling. Vitals normal, no fevers. Cough is of the clearing type. Lung exam clear today. Sinuses without pain to palpation. -Begin Xyzal 5 mg once daily. (Stop Zyrtec) -Begin Flonase nasal spray a.m. and p.m. to help shrink the inflammation down in her nasal and sinus passages. -Begin prednisone 20 mg once daily for 5 days -Stop use of Afrin nasal spray. Do not use Afrin more than 2 days. This will cause rebound nasal swelling At this time there is no indication for an antibiotic, no signs of acute bacterial infection. Counseled patient on dangers of antibiotic use. Seek additional medical care if fever over 101.5, wheezing, shortness of breath, significant sinus pain as well as a greater than 7 days, worse in any way. Allergies, Adult An allergy is a condition in which the body's defense system (immune system) comes in contact with an allergen and reacts to it. An allergen is anything that causes an allergic reaction. Allergens cause the immune system to make proteins for fighting infections (antibodies). These antibodies cause cells to release chemicals called histamines that set off the symptoms of an allergic reaction. Allergies often affect the nasal passages (allergic rhinitis), eyes (allergic conjunctivitis), skin (atopic dermatitis), and stomach. Allergies can be mild, moderate, or severe. They cannot spread from person to person. Allergies can develop at any age and may be outgrown. What are the causes? This condition is caused by allergens. Common allergens include: ? Outdoor allergens, such as pollen, car fumes, and mold. ? Indoor allergens, such as dust, smoke, mold, and pet dander. ? Other allergens, such as foods, medicines, scents, insect bites or stings, and other skin irritants. What increases the risk? You are more likely to develop this condition if you have: ? Family members with allergies. ? Family members who have any condition that may be caused by allergens, such as asthma. This may make you more likely to have other allergies. What are the signs or symptoms? Symptoms of this condition depend on the severity of the allergy. Mild to moderate symptoms ? Runny nose, stuffy nose (nasal congestion), or sneezing. ? Itchy mouth, ears, or throat. ? A feeling of mucus dripping down the back of your throat (postnasal drip). ? Sore throat. ? Itchy, red, watery, or puffy eyes. ? Skin rash, or itchy, red, swollen areas of skin (hives). ? Stomach cramps or bloating. Severe symptoms Severe allergies to food, medicine, or insect bites may cause anaphylaxis, which can be life-threatening. Symptoms include: ? A red (flushed) face. ? Wheezing or coughing. ? Swollen lips, tongue, or mouth. ? Tight or swollen throat. ? Chest pain or tightness, or rapid heartbeat. ? Trouble breathing or shortness of breath. ? Pain in the abdomen, vomiting, or diarrhea. ? Dizziness or fainting. How is this diagnosed? This condition is diagnosed based on your symptoms, your family and medical history, and a physical exam. You may also have tests, including: ? Skin tests to see how your skin reacts to allergens that may be causing your symptoms. Tests include: ? Skin prick test. For this test, an allergen is introduced to your body through a small opening in the skin. ? Intradermal skin test. For this test, a small amount of allergen is injected under the first layer of your skin. ? Patch test. For this test, a small amount of allergen is placed on your skin. The area is covered and then checked after a few days. ? Blood tests. ? A challenge test. For this test, you will eat or breathe in a small amount of allergen to see if you have an allergic reaction. You may also be asked to: ? Keep a food diary. This is a record of all the foods, drinks, and symptoms you have in a day. ? Try an elimination diet. To do this: ? Remove certain foods from your diet. ? Add those foods back one by one to find out if any foods cause an allergic reaction. How is this treated? Treatment for allergies depends on your symptoms. Treatment may include: ? Cold, wet cloths (cold compresses) to soothe itching and swelling. (more content not included)... Normal [facility] Urgent Care Note- Provideron 03-09-2024 Urgent Care Note- Provider Patient: NOLVIA CONTRERAS Age: 64 years Sex: FEMALE : 1960 Associated Diagnoses: Nasal hypertrophy; Acute rhinitis Author: Andrey Armendariz Basic Information Time seen: Date & time 03/09/2024 13:01:00. History source: Patient. Arrival mode: Walking. History limitation: None. Additional information: Chief Complaint from Nursing Triage Note : Chief Complaint 03/09/2024 12:27 EDT Chief Complaint pt c/o congestion for over 1 week. pt states she was seen by PCP last week who gave her abx but is not feeling better and states she is starting to feel worse. pt endorses sneezing and coughing at night. denies sore throat or fevers. . Mrs. Contreras is a very pleasant, 64-year-old patient who states she has had a significant nasal congestion, cannot breathe through her nose at night, has been using Afrin for 4 days. She states that she has pressure in her cheeks. She has been doing a lot of sneezing. She feels drainage down the back of her throat causing her cough. She states she has not felt ill or sickly, no fevers body aches. No purulent drainage from her naris. She states she has a hard time not using Afrin and try to switch to Flonase. She did see her family physician for this and 7 days ago she was put on Ceftin 500 mg 3 times a day. Patient states antibiotic have not helped her at all. She reports that she always has terrible allergies, especially in the summer. He was seen here in December and started on steroids for allergies and she states she had the same symptoms then and it helped her so much. She is requesting prednisone today. Patient states she is tried Claritin that does not help. She states Zyrtec is slightly more beneficial and she has been taking that. ALL: Augmentin, Codeine Review of Systems Constitutional symptoms: No fever, no chills, no decreased activity. ENMT symptoms: Nasal congestion, no ear pain, no sinus pain. Respiratory symptoms: Cough, no shortness of breath, no wheezing, Sputum production: Clear. Gastrointestinal symptoms: No nausea, no vomiting. Neurologic symptoms: No headache, no dizziness. Allergy/immunologic symptoms: Seasonal allergies. Health Status Allergies: Allergic Reactions (Selected) Unknown Augmentin- Pantera and nauseous. Severity Not Documented Codeine- No reactions were documented.. Medications: (Selected) Prescriptions Prescribed Albuterol (Eqv-Proventil HFA) 90 mcg/inh inhalation aerosol: 1 puff(s), INH, q6hr, PRN: NEEDED FOR WHEEZING, 7 EA, 3 Refill(s) Xyzal 5 mg oral tablet: 5 mg = 1 tab(s), Oral, qPM, for 14 day(s), 14 tab(s), 0 Refill(s) cefuroxime 250 mg oral tablet: 250 mg = 1 tab(s), Oral, BID, for 10 day(s), 20 tab(s), 0 Refill(s) fluticasone 50 mcg/inh nasal spray: 1 spray(s), Nostril-Both, BID, for 7 day(s), 16 gm, 0 Refill(s) levothyroxine 50 mcg (0.05 mg) oral tablet: 1 tab(s), Oral, Daily, 90 tab(s), 3 Refill(s) lisinopril 10 mg oral tablet: 1 tab(s), PO, Daily, 90 tab(s), 3 Refill(s) predniSONE 20 mg oral tablet: 20 mg = 1 tab(s), Oral, Daily, for 5 day(s), 5 tab(s), 0 Refill(s) simvastatin 20 mg oral tablet: 1 tab(s), PO, Once a day (at bedtime), 90 tab(s), 3 Refill(s) Documented Medications Documented Daily Multi: PO, Daily, 0 Refill(s) Trelegy Ellipta 100 mcg-62.5 mcg-25 mcg/inh inhalation powder: INHALE 1 PUFF IN THE MORNING beta-carotene 15 mg oral capsule: 15 mg = 1 cap(s), PO, Daily, 0 Refill(s) pro biotic: 0 Refill(s). Past Medical/ Family/ Social History Medical history: Resolved Thyroid hormone tests low ([id number]): Resolved. Palpitations ([id number]): Resolved. Lightheadedness ([id number]): Resolved. Contact dermatitis ([id number]): Resolved.. Surgical history: Mammogram ([id number]) on 09/26/2017 at 57 Years.. Family history: CA - Breast cancer Mother Hypertension Father Mother Stroke Mother . Social history: Social & Psychosocial Habits Alcohol 10/04/2022 Alcohol Use: Current Type: Beer, Wine Frequency: 1-2 times per month Employment/School 05/27/2018 Status: Employed Description: [employer] Exercise 05/27/2018 Duration (average number of minutes): 30 Times per week: 3-4 times/week Exercise type: Walking Home/Environment 05/27/2018 Lives with: Spouse Nutrition/Health 05/27/2018 Caffeine intake amount: Coffee-2-3 cups daily; green/black tea-1 cup occ Substance Use 10/04/2022 Substance use: Never Tobacco 12/21/2023 Smoking tobacco use: Never tobacco user Electronic Cigarette/Vaping 12/21/2023 Electronic Cigarette Use: Never . Problem list: Active Problems (3) High blood cholesterol HTN (hypertension) Hypothyroidism . Physical Examination Vital Signs Vital Signs 03/09/2024 12:27 EDT Temperature Oral 36.6 DegC Temperature Oral (DegF) 97.8 DegF Peripheral Pulse Rate 70 bpm Respiratory Rate 16 br/min Systolic Blood Pressure 143 mmHg HI Diastolic Blood Pressure 79 mmHg SpO2 98 % Oxygen Therapy Room air BP Method Automatic (more content not included)... Normal [facility] Urgent Care [place] [address]24 Urgent Care Record [facility] ? Urgent Care [address] [place] [address] PATIENT DISCHARGE INSTRUCTIONS Patient Information Name: NOLVIA CONTRERAS Age: 64 Years Date of : 1960 Reason For Visit: UC - Sinus Pain or Congestion; UC - Sinus Pain or Congestion; CONGESTION Arrival Time: 03/09/2024 11:56:35 Primary Care Physician: Charlotte Garcia APRN, CNP Attending Physician: Andrey Armendariz Comment: Visit Diagnosis: Diagnoses This Visit Acute rhinitis (J00) Nasal hypertrophy (J34.89) UC - Sinus Pain or Congestion ([id number]) UC - Sinus Pain or Congestion ([id number]) If you received any narcotics, sedation, or any other medication that causes drowsiness for the next 24 hours, unless otherwise directed: ? Do not drive a car. ? Do not operate machinery such as power tools, lawn mowers, drills, sewing machines, or stoves ? Avoid alcoholic beverages and drugs for allergies, nerves, or sleep ? Do not make important personal or business decisions or sign any legal documents With: Address: When: Charlotte Garcia [address] [place] [phone] Business (1) Within 3 to 5 days Comments: You were diagnosed with uncontrolled allergies with symptoms of clear runny nose, congestion, sniffling. Vitals normal, no fevers. Cough is of the clearing type. Lung exam clear today. Sinuses without pain to palpation. -Begin Xyzal 5 mg once daily. (Stop Zyrtec) -Begin Flonase nasal spray a.m. and p.m. to help shrink the inflammation down in her nasal and sinus passages. -Begin prednisone 20 mg once daily for 5 days -Stop use of Afrin nasal spray. Do not use Afrin more than 2 days. This will cause rebound nasal swelling At this time there is no indication for an antibiotic, no signs of acute bacterial infection. Counseled patient on dangers of antibiotic use. Seek additional medical care if fever over 101.5, wheezing, shortness of breath, significant sinus pain as well as a greater than 7 days, worse in any way. Medication Information: The exam and treatment you received today in the [facility] were for an urgent problem and are not intended as complete care. It is important for you to follow up with a doctor, nurse practitioner, or physician?s assistant mechanic for ongoing care. If your symptoms become worse or you do not improve as expected and you are unable to reach your usual health care provider, you should return to the Emergency Department, we are available 24 hours a day. For those patients who have received Radiology results, the interpretation of your X-ray as given to you by our Urgent Care physician is only a preliminary report. The Radiologist will review your films and if there is a change in the diagnosis you will be notified by phone. Please make sure you have provided a working phone number so we can reach you if necessary. In the event that you had a lab culture while you were a patient in the Urgent Care, you will be notified by phone if there is a need to change your antibiotic. Please make sure you have provided a working phone number so we can reach you if necessary. [facility] has provided you with a complete list of medications post discharge. Please inform your territory business manager/provider of your visit and for further instruction on these medications. Any specific questions regarding your chronic medications and dosages should be discussed with your primary care physician(s) and/or pharmacist. New Medications [facility] [address] [place], [place] [id number], [phone] fluticasone nasal (fluticasone 50 mcg/inh nasal spray) 1 spray(s) Nostril-Both 2 times per day for 7 Days. Refills: 0. levocetirizine (Xyzal 5 mg oral tablet) 1 tab(s) Oral (given by mouth) once a day (in the evening) for 14 Days. Refills: 0. predniSONE (predniSONE 20 mg oral tablet) 1 tab(s) Oral (given by mouth) every day for 5 Days. Refills: 0. Additional medications on your home medication list not specifically addressed. Please contact the ordering physician if you have questions about these medications. albuterol (Albuterol (Eqv-Proventil HFA) 90 mcg/inh inhalation aerosol) 1 puff(s) Inhale (breathe in) every 6 hours. as needed NEEDED FOR WHEEZING. Refills: 3. beta-carotene (beta-carotene 15 mg oral capsule) 1 cap(s) Oral (given by mouth) every day. cefuroxime (cefuroxime 250 mg oral tablet) 1 tab(s) Oral (given by mouth) 2 times per day for 10 Days. Refills: 0. fluticasone/umeclidin ium/vilanterol (Trelegy Ellipta 100 mcg-62.5 mcg-25 mcg/inh inhalation powder) INHALE 1 PUFF IN THE MORNING. levothyroxine (levothyroxine 50 mcg (0.05 mg) oral tablet) 1 tab(s) Oral (given by mouth) every day. Refills: 3. lisinopril (lisinopril 10 mg oral tablet) 1 tab(s) Oral (given by mouth) every day. Refills: 3. multivitamin with minerals (Daily Multi) Oral (give (more content not included)... Normal [facility] Patient Handouton 03-02-2024 Patient Handout Infectious Disease Sinus Infection, Adult A sinus infection, also called sinusitis, is inflammation of your sinuses. Sinuses are hollow spaces in the bones around your face. Your sinuses are located: ? Around your eyes. ? In the middle of your forehead. ? Behind your nose. ? In your cheekbones. Mucus normally drains out of your sinuses. When your nasal tissues become inflamed or swollen, mucus can become trapped or blocked. This allows bacteria, viruses, and fungi to grow, which leads to infection. Most infections of the sinuses are caused by a virus. A sinus infection can develop quickly. It can last for up to 4 weeks (acute) or for more than 12 weeks (chronic). A sinus infection often develops after a cold. What are the causes? This condition is caused by anything that creates swelling in the sinuses or stops mucus from draining. This includes: ? Allergies. ? Asthma. ? Infection from bacteria or viruses. ? Deformities or blockages in your nose or sinuses. ? Abnormal growths in the nose (nasal polyps). ? Pollutants, such as chemicals or irritants in the air. ? Infection from fungi. This is rare. What increases the risk? You are more likely to develop this condition if you: ? Have a weak body defense system (immune system). ? Do a lot of swimming or diving. ? Overuse nasal sprays. ? Smoke. What are the signs or symptoms? The main symptoms of this condition are pain and a feeling of pressure around the affected sinuses. Other symptoms include: ? Stuffy nose or congestion that makes it difficult to breathe through your nose. ? Thick yellow or greenish drainage from your nose. ? Tenderness, swelling, and warmth over the affected sinuses. ? A cough that may get worse at night. ? Decreased sense of smell and taste. ? Extra mucus that collects in the throat or the back of the nose (postnasal drip) causing a sore throat or bad breath. ? Tiredness (fatigue). ? Fever. How is this diagnosed? This condition is diagnosed based on: ? Your symptoms. ? Your medical history. ? A physical exam. ? Tests to find out if your condition is acute or chronic. This may include: ? Checking your nose for nasal polyps. ? Viewing your sinuses using a device that has a light (endoscope). ? Testing for allergies or bacteria. ? Imaging tests, such as an MRI or CT scan. In rare cases, a bone biopsy may be done to rule out more serious types of fungal sinus disease. How is this treated? Treatment for a sinus infection depends on the cause and whether your condition is chronic or acute. ? If caused by a virus, your symptoms should go away on their own within 10 days. You may be given medicines to relieve symptoms. They include: ? Medicines that shrink swollen nasal passages (decongestants). ? A spray that eases inflammation of the nostrils (topical intranasal corticosteroids). ? Rinses that help get rid of thick mucus in your nose (nasal saline washes). ? Medicines that treat allergies (antihistamines). ? Cjlg-wvl-kcfbuxb pain relievers. ? If caused by bacteria, your health care provider may recommend waiting to see if your symptoms improve. Most bacterial infections will get better without antibiotic medicine. You may be given antibiotics if you have: ? A severe infection. ? A weak immune system. ? If caused by narrow nasal passages or nasal polyps, surgery may be needed. Follow these instructions at home: Medicines ? Take, use, or apply bvut-mbf-pzvpnye and prescription medicines only as told by your health care provider. These may include nasal sprays. ? If you were prescribed an antibiotic medicine, take it as told by your health care provider. Do not stop taking the antibiotic even if you start to feel better. Hydrate and humidify ? Drink enough fluid to keep your urine pale yellow. Staying hydrated will help to thin your mucus. ? Use a cool mist humidifier to keep the humidity level in your home above 50%. ? Inhale steam for 10?15 minutes, 3?4 times a day, or as told by your health care provider. You can do this in the bathroom while a hot shower is running. ? Limit your exposure to cool or dry air. Rest ? Rest as much as possible. ? Sleep with your head raised (elevated). ? Make sure you get enough sleep each night. General instructions ? Apply a warm, moist washcloth to your face 3?4 times a day or as told by your health care provider. This will help with discomfort. ? Use nasal saline washes as often as told by your health care provider. ? Wash your hands often with soap and water to reduce your exposure to germs. If soap and water are not available, use hand topographical surveyor. ? Do not smoke. Avoid being around people who are smoking (secondhand smoke). ? Keep all follow-up visits. This is important. Contact a health care provider if: ? You have a fever. ? Your symptoms get (more content not included)... [facility] Coding Summaryon 12-27-2023 [facility] MqzqkmlqBOj0oKa+PGhlY WQ+WU7HZVUiQ79dbFOqfI 7wJ2JXHOiSYicsUDYEEEa JZzIpbyJcBV4anZJmJQAm IC8+YY3zZIBaUfwzdOYrp 9A4cKU3T54bog7zQUbmcD L1PXLuGyTifeieh0yogUi 6IDcuNmluOyBt VHBgwO66TPY1wF49Tc21g MCynHWpb6cvbBf8PcLqDI DfTXQ8iGbvNOqem7QkHBL tP46qmSLor5S7 ZYMsuUlqqVGjXqPdrUT7o D4rHGpjuyvfg9fewsxeZb z4pg74dUOlq1P1kTR6H4R bohL5RAEirYIo KsqmrRRWyQ2uknlat3wla mvnFqVtRCJgUQz6NZe1HU CtkXmvOpXbQH44DBL7ZVS rmwPhD1RqWHPr xYfjSpB0b5U3Xp2AP1CAC fvvV8KLUCWPRJswqQF+PC 92bw46Y2PeVnmzQsq4WNT wQFB3mNQ4eO0p IBApNTvzk4N5uHI9A7Sgs eAfgl0lh1yiEDVpYNvdY4 6mdMFyv8L7TIFfrQF5UKO wsPpmTiDwzO72 Oyc+ANKwxTsii3DrCqeph 4qqr0vtdFs9XkdvFFRffd MkyYwmILK1i9MeAv9iBOJ skKD4gSJ9pL0z UhPyKrP5QBxiS170EvVxu BIvHecbY38yS6PjuJI+PH PlDfs9GDWvsLljAT6cD8F hZGRpbmctbGVm oLegBV2zKHEkqfywQBGbn J1mSUCvU3n8ZmXhLfP5LX zfS3CrDHIdwjclZs04tC7 oUxKgXqV0IHpw X8ExcvV7PSUnoUDmKSmwV RJ9Q60ar4F9DPPkVJInFE R6mFD0rS3oqGmcoyqqgAY mdDsgdmVydGlj MQpgYPujA038GTPfyXrlN kNvZGluZyBEYXRlOiAgMD QvMjYvMjAyNDwvdGQ+PHR vUSP9eLpjJJYq aCAuTZfkUw0kpYrflZrsQ C4cKHJvpghlJGZurG4dWD TcnLUivQiaTP4pLPLeuza bm895QxKuWOA4 JSSavIRiR5VpeL4oCdTcJ WJjSSIlH5MnbRCuEWohR7 57CLsqBbN8XUXofeUqE0T sLWFsaWduOiB0 m4J9Wm4Ho9MkvwkgH2Nkx ZSzZzBdXmgdAUd9B9QaUf wvdHI+PO21EGJmKF29AOi 6QIX1uAoxGMdv AHSkM5SgbM8eQtOuTQDeE GRkOyc+PHRhYmxlIHdpZH RoPScxMDAlJyBzdHlsZT0 wUu5vGNWmDKXf dEapbJRxBgGcj5jcJERpB RdkMZ1wtMupV1BfaXZ0UI Sxt3a9Jr17J26cU8KaeOL +NNMirFY9lDJ2 lA6gYeYkBwN9EDhzF911O mYffKQmGqxvl2wye8qbqS h1JmQ1XUSvvhRyuHtvPTI 4j1ClUg25R13t IHdpZHRoPSIxNSUiIHZhb Vkkoi5dxH4sWm4+PGNvbC L3bUQ7qB2wBlRxPzR0OVr xX286KaWfxQOj Rqyya5skz0snuQm7XkPlV QQwwxZjvVkoFHK7z0InKk 71E6JtjQtuu3ZzZna1si2 9pBJgx0Y5kOK6 Z3WzVMNwcyzojDKxyCbeN O5vNFAtbfirUCHzjV3rPC CiI3h9KaEiJsN1CEviJ8I zuwE6BMGuoUUd YKWduRMEqI3vllipa0ier xgxIwGqHYYbWAf4JNe0TL XmsYkbFtBcYNN8AfT1OCS 0sOOjtI2ejBxy obfyxS8jZrj+FJI7pEDrx HXAQX0jEktuiRH+PHRkIH F2jDteKSppOJRhvX0lIOZ jT0t2EcQnFjF6 BFitI9EqvyB4KYMqvFXyE GBsqLNVxI5ieqluq0bwgk clYlQjNDIrJDm0HTl0MUC saWduOiBsZWZ0 CaQ5IFX5zAMpxD4soIdsp mkazF5hQht+QmlydGggRG P1UXs8B7WyPcu4FHZkrQn cPK5urNVoNDdh Jo3hiEozuXssKX4mIYQrp vsyx369QnZtj4woTSCenF LdEAclCNO4V23vm8Q7EJR mGZGzOYA5lFU5 qY0oyPezzdchbWHzqYrww bWkdVqvPKrdGScxI061SR RpiSriRmFfYXw4L8BvBms 7HKByxFrdFM6c wZPkIXafBn2slRnjcVevO N5tSZHrwawjw745KhYrh5 rrIWCdhVZtBStaRQZ6V66 qu8J1RZRiXVNv ZMZ9gFI6pY6nsOwojgxte GVmdDsgdmVydGljYWwtYW ivZ306EVGtnGcpMfAczGf 3M5AgVrk1BBVe uZbzSH6azRShKIleMx2ae OgzcCvcHI8kZXIcawqtg9 57FtEmt3kaBPNouBNcKMx iVTC2J13qz1G0 KUIfBSUhFHU7ySH9uL4gb GlnbjogbGVmdDsgdmVydG fhFXunUAbgT454RMItsVi nPlBhdGllbnQg TPmbJNk0A1QwJlqjyPP+P I13ARKwQE33nOXnvPPat3 tffMr2VpYkGWFxLVL2kPf aQGkjh3EmJVPw H34wiQVfb9X4LSXpcCcuy ZBpYwZamEA9pS1hVArhpp clc1rbdnjlWynyh5ivjr2 4yZ25Y82uCWly ZHRoPSIzMCUiIHZhbGlnb m4ifW3dDi4+WNOqkNX1kY P9aV5oCQLxRjM6WGvxC70 9InRvcCIvPjxj o7iii1momNh0CkV4SQEvv sEzqRzxXIG8z9UgSu69U5 9sIHdpZHRoPSIyMCUiIHZ kqLxlbj3pbE1b Ii8+RFBprJI0iRI0vU0cH nFsNbC7PIjrH357YhRkkY BrTjakU18sJ6UbkHV+PHR sCew0DTHdnGcg NN2ecRLcQRgtVy2zJOE3R kTxCpEwJNsnU0TsTCPbmv lzwycgpHT2SIDgJMIhiN3 8Nw3oiPvbMDAm yZUEvG8kgtyfl0otkoevH fTnSFNfJHk8BUp7PZCrlD pnNsMfVSL0CgD0BAB7aIC zrS9myDsrtdcb lF2nU7XdHCPsvsigYt09h L9sRnNsYbS1EEzcCqi+Uk 8XJX1BLKUSRQgCIIOMXR8 5NU69dAYwd9E8 eYB8D3TkZYPxkqioevqmm HF1RWInBWWwoZ80vTVpPZ vkNy5yc4Y0a820DWQzCYY swN49Dy5yuIkt TIUcjXOVmK2wkncrr7ldp orvMmAzEFOlYMz6WJm0YU ZkkRfwTlSoAZQ8LzS9JVK 5mXVnyR5wtTnb qfwocT9sRwm+MDUvMjcvM Ug1KMslbYY+NIMlRUH1jU phKDdzRZExrT1tSDGsT9v 8AjIlExY0JVbw O2NzJVPbklgpPh60oB2bS mDzQtO7SOlxH7UmtzI4MP IknNAoVVcfFXE8N73if6S 9JKHpLDNkSJE1 pLJ9lN7emGxvleesrQKwq DsgdmVydGljYWwtYWxpZ2 15TTQtyLzxLvX2HPzfMQG yHU43AS48fUTy z8A6lWM7M6PvPYUaoyomj ggyuKR1KGKgBIEaaW29gJ KwYUyyNz1ih2F1j724GAT yXDOgmA37Lj0f xMogYNLzdNLXuK4rvuqcy 5lxaqdfHtJhKHGlDZs2PS v3DWQhjEfyPxSiFVQ8MfV 2ZCX6nIJwjE1b dSwlolchoA2gMdv+RkVNQ IrTBD59GO79tPPkq8J3eV Q7X8NmJQTimujtmgqskKX 5ALYoWTRvzT30 wBQuFUzsGc1nf0B8q758W XTcYLXefN27Dn9coCplBR OloPSWuA3gydooj5pjygf gIzAwMDAwMDt0 CCj6CPMnhBzuVfIcIQU4Q yK0WLQ5nLQalY8ixGwzxq bfiS4lJvh+T7B0M5TgSrq vdHI+YP00GBAk TH88zCHmxZSzj8dxsXa8X hUuSZGyNSP7sGbdUWblr9 LjFSTbO04mrHWyx5I5SWH vbGxhcHNlOyBl oFT0rI0hQZkgqhxyf1hio ylaBznok6rxsq85xN95Q8 9sIHdpZHRoPSIzMCUiIHZ jnAcpqt7xgU9b Ii8+UEUzkOQ3jOF3cL8hN dQzIoV0BBwyG222GmIucJ CsDdibv4wst5zghHr5FkG wJSIgdmFsaWdu TLT6f7GcWc49G22cFHqcQ HRoPSIyMCUiIHZhbGlnbj 1niW2tUo3+WK0sv9jcun6 3hG66nED+PHRk AEB4lHybDNquNVQwcK0kN SxgWjK6DBRjFiAptJ18qW VaDRzpKo5ioBdtgDllFQ5 oDJVbjowvq634 CaZjd8dkDYUluZGmQEsdZ ZG7J09uv8V1NKZvPQZoOE D2aPM6pT7xgZiwelwipHB mdDsgdmVydGlj AIcaLWnwA522KHExfIepL mKaxCOwS1uourLXQA7wOt wvdGQ+JKQqPYR8hJscRNg mCVPnvY4oQUVd R5j6WgDjSuO4BYmnQ3Awj tH0UOBvkZXySFArmUPKnH 2jjouow6fykfuvDvAoGWB qQEk7PYj8TSXi tQolKwOjXLJ7GrV5LXN7i UVukP0rxOojmlakuA5vGg c+RklOOjwvdGQ+PHRkIHN 0eWxlPSdwYWRk iE9qXSFwD4k4MnIqYrZ9C JrkR8GaugE6HTFelPOaPY FncAXTwM3bdyaxp0zpcvm gIzAwMDAwMDt0 PAq1ALZglYkyPmMmSGH8O vE4PFC0mNGxwX1mtNogbn ekxM9pUau+TVJOOjwvdGQ +FISfBZY8sJav LFmgLVPxmL0dKYDzA6i2V cMaUsZ4ZDevU3YzlrU9EZ HlnZHaAZXjgYXBpS4bkbn vk4ykvgwkRjXt YOFvQFp9WDt3PXHqhLdbM rKcAWX3IsD3QJQ0dKWlgW 2uoQkvcgiiyW1pTfa+UGF 3LJL8RX43CX22 Z8TzPrvcpAIejFC+PHRhY mxlIHdpZHRoPScxMDAlJy GxxCjjIN9fJe1mRDGbHSR vbGxhcHNlOiBj b2x (more content not included)... Normal [facility] ED Clinical Summaryon 2023 ED Clinical Summary [facility] ? Urgent Care [address] [place], [place] [id number] Clinical Summary PERSON INFORMATION Name: NOLVIA CONTRERAS Age: 63 Years Sex: FEMALE : 1960 MRN: Acct#: Visit Reason: Nasal drainage; Eye problem; BILATERAL EYE SWELLING Arrival: 12/21/2023 09:04:45 Discharge: 12/21/2023 09:50:00 LOS: 000 00:46 Check In: 12/21/2023 09:04:45 Checkout: 12/21/2023 09:50:00 Address: [facility] [address] PCP: Charlotte Garcia APRN, CNP PROVIDER INFORMATION Provider Role Assigned Unassigned Nacho Lange PA-C ED PA 12/21/2023 09:08:07 Laquita Yo RN ED Nurse 12/21/2023 09:08:33 VITALS INFORMATION Vital Sign Triage Latest Temperature Tympanic Temperature Temporal Artery Pulse Rate O2 Sat 99 % 99 % Respiratory Rate Blood Pressure /84 mmHg /84 mmHg MEDICAL INFORMATION Medications Given: Allergy Information: Augmentin; codeine PHYSICIAN DOCUMENTATION DISCHARGE INFORMATION: Discharge Disposition: Home Discharge Location: Home PATIENT EDUCATION INFORMATION Instructions: Follow-Up: DIAGNOSIS: 1:Allergies Patient Understands: Yes - Patient/family/caregi geoff verbalizes understanding of instructions given Comment: Normal [facility] ED Patient Summaryon 024 ED Patient Summary [facility] ? Urgent Care [address] [place] [address] PATIENT DISCHARGE INSTRUCTIONS Patient Information Name: NOLVIA CONTRERAS Age: 63 Years Date of : 1960 Reason For Visit: Nasal drainage; Eye problem; BILATERAL EYE SWELLING Arrival Time: 12/21/2023 09:04:45 Primary Care Physician: Charlotte Garcia APRN, CNP Attending Physician: Nacho Lange PA-C Comment: Patient Education Medication Information: The exam and treatment you received today in the [facility] Emergency Department were for an urgent problem and are not intended as complete care. It is important for you to follow up with a doctor, nurse practitioner, or physician?s assistant mechanic for ongoing care. If your symptoms become worse or you do not improve as expected and you are unable to reach your usual health care provider, you should return to the Emergency Department, we are available 24 hours a day. For those patients who have received Radiology results, the interpretation of your X-ray as given to you by our Emergency Department physician is only a preliminary report. The Radiologist will review your films and if there is a change in the diagnosis you will be notified by phone. Please make sure you have provided a working phone number so we can reach you if necessary. In the event that you had a lab culture while you were a patient in the Emergency Department, you will be notified by phone if there is a need to change your antibiotic. Please make sure you have provided a working phone number so we can reach you if necessary. [facility] Emergency Department has provided you with a complete list of medications post discharge. Please inform your territory business manager/provider of your visit and for further instruction on these medications. Any specific questions regarding your chronic medications and dosages should be discussed with your primary care physician(s) and/or pharmacist. New Medications [facility] [address] [place], [place] [id number], [phone] predniSONE (predniSONE 10 mg oral tablet) Take 3 tabs by mouth daily x3 days, then 2 tabs daily x3 days, then 1 tab daily x3 days. Refills: 0. Medications to Continue That Have Not Changed Other Medications albuterol (Albuterol (Eqv-Proventil HFA) 90 mcg/inh inhalation aerosol) 1 puff(s) Inhale (breathe in) every 6 hours (scheduled) as needed NEEDED FOR WHEEZING. Refills: 3. beta-carotene (beta-carotene 15 mg oral capsule) 1 cap(s) Oral (given by mouth) every day. fluticasone/umeclidin ium/vilanterol (Trelegy Ellipta 100 mcg-62.5 mcg-25 mcg/inh inhalation powder) INHALE 1 PUFF IN THE MORNING. levothyroxine (levothyroxine 50 mcg (0.05 mg) oral tablet) 1 tab(s) Oral (given by mouth) every day. Refills: 3. lisinopril (lisinopril 10 mg oral tablet) 1 tab(s) Oral (given by mouth) every day. Refills: 3. multivitamin with minerals (Daily Multi) Oral (given by mouth) every day. simvastatin (simvastatin 20 mg oral tablet) 1 tab(s) Oral (given by mouth) once a day (at bedtime). Refills: 3. Visit Information Visit Diagnosis: Diagnoses This Visit Allergies (T78.40XA) Eye problem ([id number]) Nasal drainage ([id number]) If you received any narcotics, sedation, or any other medication that causes drowsiness for the next 24 hours, unless otherwise directed: ? Do not drive a car. ? Do not operate machinery such as power tools, lawn mowers, drills, sewing machines, or stoves ? Avoid alcoholic beverages and drugs for allergies, nerves, or sleep ? Do not make important personal or business decisions or sign any legal documents Reason for Visit: Yesterday developed bilateral eye irritation, swelling and redness around the eyelid and under the eye. Pt also c/o having nasal drainage with a cough. Allergies: Substance Reaction Symptoms Type Comments Augmentin pantera Drug Augmentin Nauseous Drug codeine Drug Vital Signs: Vitals and Measurements this Visit (last charted value for your 12/21/2023 visit) Vital Signs This Visit Temperature Oral: 36.7 DegC Peripheral Pulse Rate: 82 bpm Respiratory Rate: 16 br/min Systolic Blood Pressure: 150 mmHg Diastolic Blood Pressure: 84 mmHg SpO2: 99 % Oxygen Therapy: Room air Blood Pressure Method: Automatic Measurements This Visit Height/Length Measured: 170.18 cm Weight Measured: 81.65 kg Weight Dosin.650 kg Body Mass Index: 28.19 kg/m2 BSA Measured: 1.96 m2 Problems List: Problem Onset Comments High blood cholesterol HTN (hypertension) Hypothyroidism Major Tests and Procedures: The following procedures and tests were performed during your ED visit. Laboratory Radiology Cardiology Viruses or Bacteria What?s got you sick? Antibiotics only treat bacterial infections. Viral illnesses cannot be treated with antibiotics. When an antibiotic is not prescribed, ask your (more content not included)... Normal [facility] Urgent Care [place] 024 Urgent Care Record [facility] ? Urgent Care [address] [place], [place] [id number] PATIENT DISCHARGE INSTRUCTIONS Patient Information Name: NOLVIA CONTRERAS Age: 63 Years Date of : 1960 [facility]: [id number] Reason For Visit: Nasal drainage; Eye problem; BILATERAL EYE SWELLING Arrival Time: 12/21/2023 09:04:45 Primary Care Physician: Charlotte Garcia APRN, CNP Attending Physician: Nacho Lange PA-C Comment: Visit Diagnosis: Diagnoses This Visit Allergies (T78.40XA) Eye problem ([id number]) Nasal drainage ([id number]) If you received any narcotics, sedation, or any other medication that causes drowsiness for the next 24 hours, unless otherwise directed: ? Do not drive a car. ? Do not operate machinery such as power tools, lawn mowers, drills, sewing machines, or stoves ? Avoid alcoholic beverages and drugs for allergies, nerves, or sleep ? Do not make important personal or business decisions or sign any legal documents Medication Information: The exam and treatment you received today in the [facility] were for an urgent problem and are not intended as complete care. It is important for you to follow up with a doctor, nurse practitioner, or physician?s assistant mechanic for ongoing care. If your symptoms become worse or you do not improve as expected and you are unable to reach your usual health care provider, you should return to the Emergency Department, we are available 24 hours a day. For those patients who have received Radiology results, the interpretation of your X-ray as given to you by our Urgent Care physician is only a preliminary report. The Radiologist will review your films and if there is a change in the diagnosis you will be notified by phone. Please make sure you have provided a working phone number so we can reach you if necessary. In the event that you had a lab culture while you were a patient in the Urgent Care, you will be notified by phone if there is a need to change your antibiotic. Please make sure you have provided a working phone number so we can reach you if necessary. [facility] has provided you with a complete list of medications post discharge. Please inform your territory business manager/provider of your visit and for further instruction on these medications. Any specific questions regarding your chronic medications and dosages should be discussed with your primary care physician(s) and/or pharmacist. New Medications [facility] [address], [address] [place], [place] [id number], [phone] predniSONE (predniSONE 10 mg oral tablet) Take 3 tabs by mouth daily x3 days, then 2 tabs daily x3 days, then 1 tab daily x3 days. Refills: 0. Medications to Continue That Have Not Changed Other Medications albuterol (Albuterol (Eqv-Proventil HFA) 90 mcg/inh inhalation aerosol) 1 puff(s) Inhale (breathe in) every 6 hours (scheduled) as needed NEEDED FOR WHEEZING. Refills: 3. beta-carotene (beta-carotene 15 mg oral capsule) 1 cap(s) Oral (given by mouth) every day. fluticasone/umeclidin ium/vilanterol (Trelegy Ellipta 100 mcg-62.5 mcg-25 mcg/inh inhalation powder) INHALE 1 PUFF IN THE MORNING. levothyroxine (levothyroxine 50 mcg (0.05 mg) oral tablet) 1 tab(s) Oral (given by mouth) every day. Refills: 3. lisinopril (lisinopril 10 mg oral tablet) 1 tab(s) Oral (given by mouth) every day. Refills: 3. multivitamin with minerals (Daily Multi) Oral (given by mouth) every day. simvastatin (simvastatin 20 mg oral tablet) 1 tab(s) Oral (given by mouth) once a day (at bedtime). Refills: 3. Visit Information Allergies: Substance Reaction Symptoms Type Comments Augmentin pantera Drug Augmentin Nauseous Drug codeine Drug Vital Signs: Vitals and Measurements this Visit (last charted value for your 12/21/2023 visit) Vital Signs This Visit Temperature Oral: 36.7 DegC Peripheral Pulse Rate: 82 bpm Respiratory Rate: 16 br/min Systolic Blood Pressure: 150 mmHg Diastolic Blood Pressure: 84 mmHg SpO2: 99 % Oxygen Therapy: Room air Blood Pressure Method: Automatic Measurements This Visit Height/Length Measured: 170.18 cm Weight Measured: 81.65 kg Weight Dosin.650 kg Body Mass Index: 28.19 kg/m2 BSA Measured: 1.96 m2 Problems List: Problem Onset Comments High blood cholesterol HTN (hypertension) Hypothyroidism Patient Education Viruses or Bacteria What?s got you sick? Antibiotics only treat bacterial infections. Viral illnesses cannot be treated with antibiotics. When an antibiotic is not prescribed, ask your healthcare professional for tips on how to relieve symptoms and feel better. Usual Cause Illness Viruses Bacteria Antibiotic Needed Cold/Runny Nose NO Bronchitis/Chest Cold (in otherwise healthy children and adults) NO Whooping Cough Yes Flu NO Strep Throat Yes Sore Throat (except strep) NO Fluid in the middle ear (otitis media (more content not included)... [facility] Rad - Other Radiology Report on 10-28-2023 Rad - Other Radiology Report [id number] [facility] MG MAMM SCREEN 3D JACY CADon 10-22-2022 MG MAMM SCREEN 3D JACY CAD Patient: NOLVIA CONTRERAS Exam Date: 10/22/2022 : 1960 Gender:F Ordering : DR DEYSI FERRER Admission #: [id number] Family : Order #: [id number] CLICK HERE TO VIEW EXAM RADIOLOGY REPORT PROCEDURE: MAMMOGRAM SCREENING 3D BILATERAL CAD COMPARISON: MG MAMM SCREEN 3D JACY CAD, 10/16/2021. MG MAMM SCREEN JACY W CAD, 10/14/2020. MG MAMM SCREEN JACY W CAD, 10/09/2019. MG MAMM JACY SCRN W CAD DIG, 09/04/2013. INDICATIONS: Screening mammography Calculator Name NCI Breast Cancer Risk Assessment Tool 5 Year Breast Cancer Risk 3.10% Lifetime Breast Cancer Risk 12.80% Personal Breast Cancer No Personal Ovarian Cancer No Treatments None Family Cancers Mother with breast cancer at age 79; Mother with lung cancer at age 82. LOCATION: [facility] BREAST COMPOSITION: Heterogeneously dense,which may obscure small masses. FINDINGS: DIAGNOSTIC CATEGORY 1--NEGATIVE. RIGHT BREAST: No significant suspicious finding. No significant change has occurred. LEFT BREAST: No significant suspicious finding. No significant change has occurred. RECOMMENDATIONS: ROUTINE MAMMOGRAM AND CLINICAL EVALUATION IN 12 MONTHS. PLEASE NOTE: A NORMAL MAMMOGRAM DOES NOT EXCLUDE THE POSSIBILITY OF BREAST CANCER. A CLINICALLY SUSPICIOUS PALPABLE LUMP SHOULD BE BIOPSIED. Dictated by: Alirio Barba M.D. on 10/24/2022 at 13:31 Approved by: Alirio Barba M.D. on 10/24/2022 at 13:38 Normal [facility] Vital Signs Date Time Vital Sign Value Performing Clinician Oc lewis 10-13-2024 11:28-0500 Body mass index (BMI) [Ratio] 26.61 kg/m2 Deysi Ferrer MD Work Phone: [facility] 10-13-2024 11:28-0500 Body weight 70.31 kg Deysi Ferrer MD Work Phone: [facility] 10-13-2024 11:28-0500 Diastolic blood pressure 74 mm[Hg] Deysi Ferrer MD Work Phone: [facility] 10-13-2024 11:28-0500 Systolic blood pressure 112 mm[Hg] Deysi Ferrer MD Work Phone: [facility] 07-22-2024 10:32-0500 Body mass index (BMI) [Ratio] 28.15 kg/m2 Deysi Ferrer MD Work Phone: [facility] 07-22-2024 10:32-0500 Body weight 74.39 kg Deysi Ferrer MD Work Phone: [facility] 07-22-2024 10:32-0500 Diastolic blood pressure 72 mm[Hg] Deysi Ferrer MD Work Phone: [facility] 07-22-2024 10:32-0500 Systolic blood pressure 132 mm[Hg] Deysi Ferrer MD Work Phone: [facility] 06-10-2024 13:17-0400 Body mass index (BMI) [Ratio] 30.55 kg/m2 Deysi Ferrer MD Work Phone: [facility] 06-10-2024 13:17-0400 Body weight 80.74 kg Deysi Ferrer MD Work Phone: [facility] 06-10-2024 13:17-0400 Diastolic blood pressure 82 mm[Hg] Desyi Ferrer MD Work Phone: [facility] 06-10-2024 13:17-0400 Systolic blood pressure 124 mm[Hg] Deysi Ferrer MD Work Phone: [facility] Healthcare Encounters Encounter Date Encounter Type Care Provider Facility Start: 10-21-2024 ambulatory Charlotte Gonya Facilit y:[facility] Start: 10-13-2024 End: 10-13-2024 Adamboo ghada Ferrer MD Work Phone: [facility] Start: 10-13-2024 End: 10-13-2024 Tara Ferrer MD Work Phone: [facility] Start: 10-13-2024 End: 10-13-2024 Office outpatient visit 25 minutes Deysi Ferrer MD Work Phone: [facility] Comment on above: Lichen sclerosus et atrophicus (Primary Dx); Postmenopausal atrophic vaginitis; Well woman exam with routine gynecological exam; Cervical cancer screening; Other screening mammogram Start: 10-13-2024 End: 10-13-2024 Patient encounter procedure Deysi Ferrer MD Work Phone: [facility] Start: 10-13-2024 End: 10-13-2024 ambulatory DEYSI FERRER Not Available Start: 07-22-2024 End: 07-22-2024 Bamboo ghada Ferrer MD Work Phone: [facility] Start: 07-22-2024 End: 07-22-2024 Marianneo ghada Ferrer MD Work Phone: [facility] Start: 07-22-2024 End: 07-22-2024 Office outpatient visit 25 minutes Deysi Ferrer MD Work Phone: [facility] Comment on above: Postmenopausal atrop hic vaginitis (Primary Dx); Vulvar pruritus; Lichen sclerosus et atrophicus; Dyspareunia in female Start: 07-22-2024 End: 07-22-2024 ambulatory DEYSI FERRER Not Available Start: 07-08-2024 End: 07-08-2024 ambulatory Charlotte Gonya Facility:[facility] Start: 07-07-2024 End: 07-07-2024 ambulatory Charlotte Gonya Facility:[facility] Start: 06-10-2024 End: 06-10-2024 Bamboo flowsheet Deysi Ferrer MD Work Phone: [facility] Start: 06-10-2024 End: 06-10-2024 Bamboo flowsheet Deysi Ferrer MD Work Phone: [facility] Start: 06-10-2024 End: 06-10-2024 Office outpatient visit 25 minutes Deysi Ferrer MD Work Phone: [facility] Comment on above: Vulvar pruritus (Carrie bear Dx); Vaginal irritation; Lichen sclerosus et atrophicus Start: 06-10-2024 End: 06-10-2024 ambulatory DEYSI FERRER Not Available Start: 05-25-2024 End: 05-25-2024 Bamboo flowsheet Chhaya Alvarado MD Work Phone: [facility] Start: 05-25-2024 End: 05-25-2024 Bamboo flowsheet Chhaya Alvarado MD Work Phone: [facility] Start: 05-25-2024 End: 05-25-2024 Office outpatient visit 25 minutes Chhaya Alvarado MD Work Phone: [facility] Comment on above: Viral URI (Primary D x); Flexural atopic dermatitis; Asthma, allergic, mild intermittent, uncomplicated (CMS/HCC); Moderate persistent asthma with acute exacerbation (CMS/HCC); Allergic contact dermatitis due to plants, except food; Balance problem Start: 05-25-2024 End: 05-25-2024 ambulatory CHHAYA ALVARADO Not Available Start: 03-09-2024 End: 03-09-2024 ambulatory Charlotte Radha Facility:[facility] Start: 03-02-2024 End: 03-02-2024 [facility] Start: 12-21-2023 End: 12-21-2023 ambulatory ISSAC Dutton Facility:[facility] Start: 10-14-2023 Telephone encounter Chhaya gusman MD Work Phone: [facility] Start: 10-08-2023 Chart abstracting Deysi martin MD Work Phone: [facility] Start: 10-22-2022 End: 10-23-[address] ALIRIO BARBA Facility:[facility] Procedures Date Procedure Procedure Detail Performing Clinician Start: 10-25-2023 Mammography Chhaya kowalski MD Work Phone: Start: 10-22-2022 Mammography Deysi martin MD Work Phone: Start: 09-25-2021 Microscopic observat ion [Identifier] in Cervix by Cyto stain Chhaya Alvarado MD Work Phone: Plan of Treatment Date Care Activity Detail Author Start: 10-14-2025 End: 10-14-2025 Patient encounter procedure 10/14/2025 10:15 AM EST Office Visit [facility] [address] [place] [id number] Deysi Ferrer MD [address] [place] [address] [facility] Start: 01-21-2025 End: 01-21-2025 Patient encounter procedure 01/21/2025 9:40 AM EDT Office Visit [facility] [address] [place] [phone] Chhaya Alvarado MD [address] [place] [address] [facility] Start: 10-26-2024 End: 12-10-2025 DBT Breast - bilateral screening Bilateral screening mammogram with tomosynthesis Imaging Routine Other screening mammogram Expected: 10/26/2024, Expires: 12/10/2025 [facility] Work Phone: Comment on above: Expected: 10/26/2024 , Expires: 12/10/2025 Start: 10-25-2024 Screening for malign ant neoplasm of breast Mammogram [facility] Start: 10-13-2024 End: 10-13-2024 Patient encounter procedure [facility] Comment on above: Well woman exam with routine gynecological exam; Cervical cancer screening; Screening for HPV (human papillomavirus); Other screening mammogram Start: 09-25-2024 Screening for malign ant neoplasm of cervix [facility] Start: 07-22-2024 End: 07-22-2024 Patient encounter procedure [facility] Comment on above: Vulvar pruritus; Lichen sclerosus et atrophicus Start: 06-10-2024 End: 06-10-2024 Patient encounter procedure 06/10/2024 1:30 PM EDT Office Visit [facility] [address] [place] [address] Deysi Ferrer MD [address] [facility] [address] [place] [address] Vaginal irritation [facility] Comment on above: Vaginal irritation Start: 05-25-2024 End: 05-25-2024 Patient encounter procedure [facility] Comment on above: Arrived Start: 05-03-2024 Influenza vaccination Influenza Vacc ine (#1) [facility] Start: 01-27-2024 Pneumococcal Vaccine : 65+ Years (1 of 1 - PCV) Pneumococcal Vaccine: 65+ Years (1 of 1 - PCV) [facility] Start: 10-22-2023 Screening for malign ant neoplasm of breast Mammogram [facility] Start: 1989 Screening for malign ant neoplasm of cervix [facility] Start: 01-27-1980 Screening for malign ant neoplasm of cervix Pap Smear [facility] Start: 1965 Pneumococcal Vaccine : 65+ Years (1 of 2 - PCV) Pneumococcal Vaccine: 65+ Years (1 of 2 - PCV) [facility] Start: 1959 Screening for malign ant neoplasm of colon [facility] IGP,rfx Aptima HPV a ll pth IGP,rfx Aptima HPV all pth Pathology and Cytology Routine Cervical cancer screening Ordered: 10/13/2024 [facility] Comment on above: Ordered: 10/13/2024 Immunizations Immunization Date Immunization Notes Care Provider Fa cility 06-13-2023 influenza virus vacc ine, unspecified formulation Chhaya Alvarado MD Work Phone: [facility] Payers Date Payer Category Payer Medicaid [employer] MED[employer] A DV[employer]AGE [id number] 2024 Medicare [id number] 2024 Medicare [id number] 2024 Medicare [id number] 2022 Private Health Insurance [id number] 1959 Private Health Insurance [id number] 1959 Unknown [id number] [id number]. 593 1959 Unknown [id number] 2.16.840.1.100827.3.579.2. 1258 1959 Unknown [id number] 2.16.840.1.111844.3.579.2. 1258 1959 Unknown [id number] 2.16.840.1.116096.3.579.2. 1258 1959 Unknown [id number] 2.16.840.1.524154.3.579.2. 1258 1959 Unknown [id number] 2.16.840.1.131773.3.579.2. 1959 Unknown [id number] 2.16.840.1.818028.3.579.2. 1959 Unknown [id number] 2.16.840.1.792187.3.579.2. 718 1959 Unknown [id number] 2.16.840.1.903021.3.579.2. 1959 Unknown [id number] 2.16.840.1.423719.3.579.2. 8 1959 Unknown [id number] 2.16.840.1.241151.3.579.2. 1959 Unknown [id number] [id number]. 718 Social History Date Type Detail Facility Start: 03-25-2023 Tobacco smoking stat [facility] Never smoked tobacco [facility] Start: 03-25-2023 Tobacco use and exposure Smokeless t obacco non-user [facility] Start: 10-03-2023 End: 07-22-2024 Alcohol intake Current drinker of alcohol (finding) [facility] Start: 10-03-2023 End: 07-22-2024 History of Social function [facility] Start: 10-03-2023 End: 07-22-2024 Tobacco use panel [facility] Start: 10-01-2023 Alcohol Comment Occasional wine [facility] Start: 1960 Sex Assigned At Female [facility] Start: 01-14-2023 Gender identity Identifies as female gender (finding) [facility] Clinical Notes 10-14-2023 to 10-13-2024 Deysi Ferrer MD - 10/13/2024 11:30 AM Selena Ferrer MD - 07/22/2024 10:30 AM Selena Ferrer MD - 06/10/2024 1:30 PM Bryon Alvarado MD - 05/25/2024 9:40 AM EDT Note Date & Type Note Facility 10-13-2024 History of Presen t illness Narrative Images from the original note were not included. Deysi Ferrer MD Obstetrics and Gynecology Patient: Nolvia Dalton Alexandre, : 1960 (64 y.o.) DOS 10/13/24 Exam Date: 10/13/2024 HPI: She is finally feeling better from vagifem. Now able to have painfree intercourse. Still using TAC cream externally Visit Vitals BP 112/74 Wt 155 lb BMI 26.61 kg/m OB Status Postmenopausal Smoking Status Never BSA 1.78 m OB History Para Term AB Living 1 1 1 0 0 1 SAB IAB Ectopic Multiple Live Births 0 0 0 0 1 # Outcome Date GA Lbr Ander/2nd Weight Sex Type Anes PTL Lv 1 Term Vag-Spont Obstetric Comments Pap: 09/23-Neg DANISHA: HPV Neg Mammo: 10/25/23-Neg (TB) Menopausal Medication and Allergies Medication Documentation Review Audit Reviewed by Suyapa Edmond MA (Pediatric Clinical Dietician) on 10/13/24 at 1130 Medication Order Taking? Sig Documenting Provider Last Dose Status albuterol HFA 90 mcg/act inhaler [id number] INHALE 1 PUFF BY MOUTH EVERY 6 HOURS NEEDED FOR WHEEZING Deysi Ferrer MD Active beta carotene (Vitamin A) 15 MG capsule [id number] 15 mg Deysi Ferrer MD Active estradiol (Vagifem) 10 MCG tablet vaginal tablet [id number] 1 tab intravaginally twice a week Deysi Ferrer MD Active fluticasone (Flonase) 50 MCG/ACT nasal spray [id number] USE 1 SPRAY(S) IN EACH NOSTRIL TWICE DAILY FOR 7 DAYS Deysi Ferrer MD Active Evmcloxdind-Niewdmdlu-Hzmxjk (Trelegy Ellipta) 100-62.5-25 MCG/ACT aerosol powder [id number] Inhale 1 puff Daily Chhaya Alvarado MD Active ipratropium (Atrovent) 0.06 % nasal spray [id number] Administer 2 sprays into each nostril in the morning and 2 sprays in the evening and 2 sprays before bedtime. Chhaya Alvarado MD 12/24/23 9277 Lactobacillus (Acidophilus Probiotic) 10 MG tablet [id number] Take 1 tablet by mouth in the morning. Deysi Ferrer MD Active levocetirizine (Xyzal) 5 MG tablet [id number] TAKE 1 TABLET BY MOUTH IN THE EVENING FOR 14 DAYS Deysi Ferrer MD Active levothyroxine (Synthroid, Levoxyl) 50 MCG tablet [id number] No 1 tab(s), PO, Daily, # 30 tab(s), 0 Refill(s), Pharmacy: [id number], 1 tab(s) PO Daily Historical Provider, Taking Active lisinopril 10 MG tablet [id number] No take 1 tablet (10MG) by Oral route 2 times every day Oral Historical Provider, Taking Active Simvastatin 20 MG/5ML suspension [id number] No Historical Provider, Taking Active triamcinolone (Kenalog) 0.1 % cream [id number] Apply topically Daily Deysi Ferrer MD Active Allergies Allergen Reactions Amoxicillin Unknown Codeine Other and Unknown nausea Past Medical History: Diagnosis Date Asthma (CMS/HCC) Chronic eczema Hyperlipidemia (CMS/HCC) Hypertension (CMS/HCC) Hypothyroidism (CMS/HCC) Thyroid disease (CMS/HCC) Past Surgical History: Procedure Laterality Date COLONOSCOPY W/ POLYPECTOMY HYSTEROSCOPY WI LAP,DIAGNOSTIC ABDOMEN 1999 VAGINAL DELIVERY Physical Exam: Objective Physical Exam Constitutional: Appearance: Normal appearance. Genitourinary: Genitourinary Comments: She has mild LSA/depigmentation of labia minora and post vag introitus No vaginal discharge or bleeding. Mild vaginal atrophy present. Right Adnexa: not palpable. Left Adnexa: not palpable. No cervical lesion. Uterus is not enlarged or tender. Breasts: Right: Normal. Left: Normal. Pulmonary: Effort: Pulmonary effort is normal. Abdominal: General: Abdomen is flat. Palpations: Abdomen is soft. Neurological: Mental Status: She is alert. Associated Treatments and Results - ICD-10-CM 1. Well woman exam with routine gynecological exam Z01.419 2. Cervical cancer screening Z12.4 IGP,rfx Aptima HPV all pth 3. Other screening mammogram Z12.31 Bilateral screening mammogram with tomosynthesis Assessment/Plan Orders Placed This Encounter Procedures Bilateral screening mammogram with tomosynthesis U/S and spot compression if indicated Standing Status: Future Standing Expiration Date: 12/10/2025 Order Specific Question: Reason for exam: Answer: screen documented in this encounter [facility] 07-22-2024 History of Presen t illness Narrative Images from the original note were not included. Deysi Ferrer MD Obstetrics and Gynecology Patient: Nolvia Contreras, : 1960 (64 y.o.) DOS 07/22/24 Exam Date: 07/22/2024 HPI: She is here for followup of LSA. I started her on TAC cream externally. She uses it 2-3 times a week. She has no more itching/irritation. However, she stil has vag dryness and pain with intrcourse Visit Vitals BP 132/72 Wt 164 lb BMI 28.15 kg/m OB Status Postmenopausal Smoking Status Never BSA 1.83 m OB History Para Term AB Living 1 1 1 0 0 1 SAB IAB Ectopic Multiple Live Births 0 0 0 0 1 # Outcome Date GA Lbr Ander/2nd Weight Sex Type Anes PTL Lv 1 Term Vag-Spont Obstetric Comments Pap: 09/23-Neg DANISHA: HPV Neg Mammo: 10/25/23-Neg (TBH) Menopausal Medication and Allergies Medication Documentation Review Audit Reviewed by Suyapa Edmond MA (Pediatric Clinical Dietician) on 07/22/24 at 1035 Medication Order Taking? Sig Documenting Provider Last Dose Status albuterol HFA 90 mcg/act inhaler [id number] INHALE 1 PUFF BY MOUTH EVERY 6 HOURS NEEDED FOR WHEEZING Deysi Ferrer MD Active beta carotene (Vitamin A) 15 MG capsule [id number] 15 mg Deysi Ferrer MD Active fluticasone (Flonase) 50 MCG/ACT nasal spray [id number] USE 1 SPRAY(S) IN EACH NOSTRIL TWICE DAILY FOR 7 DAYS Deysi Ferrer MD Active Nqvrdlqlewy-Fckxcincp-Fqpunv (Trelegy Ellipta) 100-62.5-25 MCG/ACT aerosol powder [id number] Inhale 1 puff Daily Chhaya Alvarado MD Active ipratropium (Atrovent) 0.06 % nasal spray [id number] Administer 2 sprays into each nostril in the morning and 2 sprays in the evening and 2 sprays before bedtime. Chhaya Alvarado MD 12/24/23 9070 Lactobacillus (Acidophilus Probiotic) 10 MG tablet [id number] Take 1 tablet by mouth in the morning. Deysi Ferrer MD Active levocetirizine (Xyzal) 5 MG tablet [id number] TAKE 1 TABLET BY MOUTH IN THE EVENING FOR 14 DAYS Deysi Ferrer MD Active levothyroxine (Synthroid, Levoxyl) 50 MCG tablet [id number] No 1 tab(s), PO, Daily, # 30 tab(s), 0 Refill(s), Pharmacy: [facility], 1 tab(s) PO Daily Historical Provider, Taking Active lisinopril 10 MG tablet [id number] No take 1 tablet (10MG) by Oral route 2 times every day Oral Historical Provider, Taking Active Discontinued 07/22/24 1035 Simvastatin 20 MG/5ML suspension [id number] No Historical Provider, Taking Active triamcinolone (Kenalog) 0.1 % cream [id number] Apply topically Daily Deysi Ferrer MD Active Allergies Allergen Reactions Amoxicillin Unknown Codeine Other and Unknown nausea Past Medical History: Diagnosis Date Asthma (CMS/HCC) Chronic eczema Hyperlipidemia (CMS/HCC) Hypertension (CMS/HCC) Hypothyroidism (CMS/HCC) Thyroid disease (CMS/HCC) Past Surgical History: Procedure Laterality Date COLONOSCOPY W/ POLYPECTOMY HYSTEROSCOPY WI LAP,DIAGNOSTIC ABDOMEN 1999 VAGINAL DELIVERY Physical Exam: Objective Physical Exam Genitourinary: Genitourinary Comments: Still with pale skin and loss of labial architecture. Perineum involved also No vaginal discharge or bleeding. Moderate vaginal atrophy present. Associated Treatments and Results - ICD-10-CM 1. Vulvar pruritus L29.2 2. Lichen sclerosus et atrophicus L90.0 Cont TAC cream externally. Add vagifem x2/week vaginally. See me in Oct at yearly exam Assessment/Plan No orders of the defined types were placed in this encounter. documented in this encounter [facility] 06-10-2024 History of Presen t illness Narrative Images from the original note were not included. Deysi Ferrer MD Obstetrics and Gynecology Patient: Nolvia Contreras, : 1960 (64 y.o.) DOS 06/10/24 Exam Date: 06/10/2024 HPI: Pt c/o vulvar itching and irritataion . Some pain with intercourse. No discharge, no bleeding Visit Vitals BP 124/82 Wt 178 lb BMI 30.55 kg/m OB Status Postmenopausal Smoking Status Never BSA 1.91 m OB History Para Term AB Living 1 1 1 0 0 1 SAB IAB Ectopic Multiple Live Births 0 0 0 0 1 # Outcome Date GA Lbr Ander/2nd Weight Sex Type Anes PTL Lv 1 Term Vag-Spont Obstetric Comments Pap: 09/23-Neg DANISHA: HPV Neg Mammo: 10/25/23-Neg (TB) Menopausal Medication and Allergies Medication Documentation Review Audit Reviewed by Suyapa Edmond MA (Pediatric Clinical Dietician) on 06/10/24 at 1317 Medication Order Taking? Sig Documenting Provider Last Dose Status albuterol HFA 90 mcg/act inhaler [id number] INHALE 1 PUFF BY MOUTH EVERY 6 HOURS NEEDED FOR WHEEZING Deysi Ferrer MD Active beta carotene (Vitamin A) 15 MG capsule [id number] 15 mg Deysi Ferrer MD Active fluticasone (Flonase) 50 MCG/ACT nasal spray [id number] Yes USE 1 SPRAY(S) IN EACH NOSTRIL TWICE DAILY FOR 7 DAYS Deysi Ferrer MD Active Cfubgckjmur-Okwdizzrx-Nqpibs (Trelegy Ellipta) 100-62.5-25 MCG/ACT aerosol powder [id number] Inhale 1 puff Daily Chhaya Alvarado MD Active ipratropium (Atrovent) 0.06 % nasal spray [id number] Administer 2 sprays into each nostril in the morning and 2 sprays in the evening and 2 sprays before bedtime. Chhaya Alvarado MD 12/24/23 2359 Lactobacillus (Acidophilus Probiotic) 10 MG tablet [id number] Take 1 tablet by mouth in the morning. Deysi Ferrer MD Active levocetirizine (Xyzal) 5 MG tablet [id number] Yes TAKE 1 TABLET BY MOUTH IN THE EVENING FOR 14 DAYS Deysi Ferrer MD Active levothyroxine (Synthroid, Levoxyl) 50 MCG tablet [id number] 1 tab(s), PO, Daily, # 30 tab(s), 0 Refill(s), Pharmacy: [facility], 1 tab(s) PO Daily Historical Provider, Active lisinopril 10 MG tablet [id number] take 1 tablet (10MG) by Oral route 2 times every day Oral Historical Provider, Active predniSONE (Deltasone) 20 MG tablet [id number] TAKE 1 TABLET BY MOUTH ONCE DAILY FOR 5 DAYS Chhaya Alvarado MD Active Simvastatin 20 MG/5ML suspension [id number] Historical Provider, Active triamcinolone (Kenalog) 0.1 % cream [id number] Apply topically 2 (two) times a day for 12 days Do not apply to face. Chhaya Alvarado MD 06/06/24 1757 Triamcinolone Acetonide 0.025 % lotion [id number] APPLY LOTION TO AFFECTED AREA ON NECK AND ARMS TWICE DAILY FOR 14 DAYS. AVOID FACE AND GROIN Deysi Ferrer MD Active Allergies Allergen Reactions Amoxicillin Unknown Amoxicillin-Pot Clavulanate GI intolerance, Nausea Only and Unknown Codeine Other and Unknown nausea Past Medical History: Diagnosis Date Asthma (CMS/HCC) Chronic eczema Hyperlipidemia (CMS/HCC) Hypertension (CMS/HCC) Hypothyroidism (CMS/HCC) Thyroid disease (CMS/HCC) Past Surgical History: Procedure Laterality Date COLONOSCOPY W/ POLYPECTOMY HYSTEROSCOPY WI LAP,DIAGNOSTIC ABDOMEN 2000 VAGINAL DELIVERY Physical Exam: Objective Physical Exam Genitourinary: Genitourinary Comments: She has skin changes c/w LSA of bila interlabial fld and perineum No vaginal discharge or bleeding. Mild vaginal atrophy present. Right Adnexa: not palpable. Left Adnexa: not palpable. No cervical lesion. Uterus is not enlarged or tender. Associated Treatments and Results - ICD-10-CM 1. Vulvar pruritus L29.2 2. Vaginal irritation N89.8 3. Lichen sclerosus et atrophicus L90.0 Trial of triamcinolone Assessment/Plan No orders of the defined types were placed in this encounter. documented in this encounter [facility] 06-10-2024 Note Entered by Vazquez Herrera MA on June 10, 2024 08:29:46 EDT pending provider signature -------- From: [facility] To: Charlotte Garcia CNP Sent: June 10, 2024 7:22:39 AM CDT Subject: Medication Management Due: June 11, 2024 12:22:27 AM CDT On Hold Pending Signature Drug: lisinopril (lisinopril 10 mg oral tablet), TAKE 1 TABLET DAILY Quantity: 90 tab(s) Days Supply: 0 Refills: 3 Substitutions Allowed Notes from Pharmacy: Dispensed Drug: lisinopril (lisinopril 10 mg oral tablet), TAKE 1 TABLET DAILY Quantity: 90 tab(s) Days Supply: 0 Refills: 3 Substitutions Allowed Notes from Pharmacy: -------- [facility] 05-25-2024 History of Presen t illness Narrative Nolvia Contreras returns to the office today and notes that she had had nasal airway obstruction since as well as cough and sneeze about 5-6 times in a row and frequent rhinorrhea. Asthma control test today is 20. She used her albuterol last night which was helpful. Had the symptoms for 4-5 days. She has been taking Loratadine and Flonase. Her chief complaint is nasal airway obstruction. She felt Afrin was helpful in the past. She has dry, red, scaly, itchy skin on her wrist and inadequate relief with hydrocortisone. The patient appears comfortable in the office today. Lungs are notable for moderate expiratory wheeze bilaterally. The oral mucosa is pink and healthy without any lesions or ulcers. The palate elevates in the midline. The nasal mucosa is red and congested. There is no epistaxis mucopus or nasal polyposis noted. The nasal septum is approximately in the midline. The skin is clear and without lesions, ulcers, or excoriations. IMPRESSION: Atopic dermatitis - change hydrocortisone to triamcinolone to WM in pc. Continue hydrocortisone on face. Viral URI - Afrin for 5 days at bed with Flonase. Mild intermittent asthma - continue Trelegy. Refill Trelegy to WM in PC. Balance - 20 squats and one leg baancing every day. Follow-up in 8 months or sooner if problems arise. documented in this encounter [facility] 03-09-2024 Note Patient Education Ma terials Follows: Allergic Rhinitis, Adult Allergic rhinitis is an allergic reaction that affects the mucous membrane inside the nose. The mucous membrane is the tissue that produces mucus. There are two types of allergic rhinitis: ? Seasonal. This type is also called hay fever and happens only during certain seasons. ? Perennial. This type can happen at any time of the year. Allergic rhinitis cannot be spread from person to person. This condition can be mild, moderate, or severe. It can develop at any age and may be outgrown. What are the causes? This condition is caused by allergens. These are things that can cause an allergic reaction. Allergens may differ for seasonal allergic rhinitis and perennial allergic rhinitis. ? Seasonal allergic rhinitis is triggered by pollen. Pollen can come from grasses, trees, and weeds. ? Perennial allergic rhinitis may be triggered by: ? Dust mites. ? Proteins in a pet's urine, saliva, or dander. Dander is skin cells from a pet. ? Smoke, mold, or car fumes. What increases the risk? You are more likely to develop this condition if you have a family history of allergies or other conditions related to allergies, including: ? Allergic conjunctivitis. This is inflammation of parts of the eyes and eyelids. ? Asthma. This condition affects the lungs and makes it hard to breathe. ? Atopic dermatitis or eczema. This is ocean transportation intermediary (chronic) inflammation of the skin. ? Food allergies. What are the signs or symptoms? Symptoms of this condition include: ? Sneezing or coughing. ? A stuffy nose (nasal congestion), itchy nose, or nasal discharge. ? Itchy eyes and tearing of the eyes. ? A feeling of mucus dripping down the back of your throat (postnasal drip). ? Trouble sleeping. ? Tiredness or fatigue. ? Headache. ? Sore throat. How is this diagnosed? This condition may be diagnosed with your symptoms, medical history, and physical exam. Your health care provider may check for related conditions, such as: ? Asthma. ? [place] eye. This is eye inflammation caused by infection (conjunctivitis). ? Ear infection. ? Upper respiratory infection. This is an infection in the nose, throat, or upper airways. You may also have tests to find out which allergens trigger your symptoms. These may include skin tests or blood tests. How is this treated? There is no cure for this condition, but treatment can help control symptoms. Treatment may include: ? Taking medicines that block allergy symptoms, such as corticosteroids and antihistamines. Medicine may be given as a shot, nasal spray, or pill. ? Avoiding any allergens. ? Being exposed again and again to tiny amounts of allergens to help you build a defense against allergens (immunotherapy). This is done if other treatments have not helped. It may include: ? Allergy shots. These are injected medicines that have small amounts of allergen in them. ? Sublingual immunotherapy. This involves taking small doses of a medicine with allergen in it under your tongue. If these treatments do not work, your health care provider may prescribe newer, stronger medicines. Follow these instructions at home: Avoiding allergens Find out what you are allergic to and avoid those allergens. These are some things you can do to help avoid allergens: ? If you have perennial allergies: ? Replace carpet with wood, tile, or vinyl billy. Carpet can trap dander and dust. ? Do not smoke. Do not allow smoking in your home. ? Change your heating and air conditioning filters at least once a month. ? If you have seasonal allergies, take these steps during allergy season: ? Keep windows closed as much as possible. ? Plan outdoor activities when pollen counts are lowest. Check pollen counts before you plan outdoor activities. ? When coming indoors, change clothing and shower before sitting on furniture or bedding. ? If you have a pet in the house that produces allergens: ? Keep the pet out of the bedroom. ? Vacuum, sweep, and dust regularly. General instructions ? Take [id number] and prescription medicines only as told by your health care provider. ? Drink enough fluid to keep your urine pale yellow. ? Keep all follow-up visits as told by your health care provider. This is important. Where to find more information ? [employer]: www.aaaai.org Contact a health care provider if: ? You have a fever. ? You develop a cough that does not go away. ? You make whistling sounds when you breathe (wheeze). ? Your symptoms slow you down or stop you from doing your normal activities each day. Get help right away if: ? You have shortness of breath. This symptom may represent a serious problem that is an emergency. Do not wait to see if the symptom will go away. Get medical help right away. Call your local emergency services (911 in the [place] Do not drive yourse (more content not included)... [facility] 12-21-2023 Note Patient Education Ma terials Follows: [facility] 10-14-2023 Telephone encount er Note She will taper off rather than stop suddenly. [facility] 10-14-2023 Miscellaneous Notes Formattin g of this note might be different from the original. She will taper off rather than stop suddenly. documented in this encounter [facility] Evaluation note Diagnosis Vulvar pruritus- Primary Pruritus of genital organs Vaginal irritation Pruritus of genital organs Lichen sclerosus et atrophicus Circumscribed scleroderma documented in this encounter [facility] note* Diagnosis Postmenopausal atrophic vaginitis- Primary Vulvar pruritus Pruritus of genital organs Lichen sclerosus et atrophicus Circumscribed scleroderma Dyspareunia in female documented in this encounter [facility] Healthcare[facility] note* Diagnosis Viral URI- Primary Acute upper respiratory infections of unspecified site Flexural atopic dermatitis Other atopic dermatitis and related conditions Asthma, allergic, mild intermittent, uncomplicated (CMS/HCC) Moderate persistent asthma with acute exacerbation (CMS/HCC) Allergic contact dermatitis due to plants, except food Contact dermatitis and other eczema due to plants (except food) Balance problem Abnormality of gait documented in this encounter [facility] HealthcareEvaluation note* Diagnosis 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 Well woman exam with routine gynecological exam Routine gynecological examination Cervical cancer screening Screening for malignant neoplasm of the cervix Other screening mammogram documented in this encounter [facility] Healthcare Summary Purpose Family History No Family History Records FoundNo Family History Records FoundNo Family History Records Found Advance Directives No Advanced Directives Records FoundNo Advanced Directives Records FoundNo Advanced Directives Records Found Additional Source Comments INFORMATION SOURCE (unrecogn ized section and content) DATE CREATED AUTHOR 10/26/2022 [facility] DATE CREATED AUTHOR AUTHOR'S ORGANIZ ATION 10/15/2024 [facility] EPIC DATE CREATED AUTHOR AUTHOR'S ORGANIZ ATION 10/23/2024 [facility] Care Teams (unrecognized sec tion and content) Materials Coordinator Relationship Specialty Start Date End Date Charlotte Garcia MD [address] [place] [address] PCP - General 01/14/23 Materials Coordinator Relationship Specialty [place] [address] [place] [id number] PCP - General 01/14/23 Materials Coordinator Relationship Specialty Start [place] [address] [place] [id number] PCP - General 01/14/23 Materials Coordinator Relationship Specialty Start Date End Date Charlotte Garcia MD [address] [place] [address] PCP - General 01/14/23 Materials Coordinator Relationship Specialty Start Date End Date Charlotte Garcia MD [address] [place] [address] PCP - General 01/14/23 Materials Coordinator Relationship Specialty Start Date End Date Charlotte Garcia MD [address] [place] [address] PCP - General 01/14/23 Materials Coordinator Relationship Specialty Start Date End Date Charlotte Garcia MD [address] [place] [address] PCP - General 01/14/23 Deysi Ferrer MD [address] [place] [address] PCP - [employer] 09/02/24 Materials Coordinator Relationship Specialty Start Date End Date Charlotte Garcia MD [address] [place] [address] PCP - General 01/14/23 Deysi Ferrer MD [address] [place] [address] PCP - [employer] 09/02/24 Reason for Visit (unrecogniz ed section and content) Reason Comments Follow-up No surgeries; no hos pital stays. Pt has congestion and a wheezing sound fro her nose. FOR RECORDS PERTAINING TO PATIENTS WHO ARE OR HAVE BEEN ENROLLED IN A CHEMICAL DEPENDENCY/SUBSTANCEABUSE PROGRAM, SOME INFORMATION MAY BE OMITTED. This clinical summary was aggregated from multiple sources. Caution should be exercised in using it in the provision of clinical care. This summary normalizes information from multiple sources, and as a consequence, information in this document may materially change the coding, format and clinical context of patient data. In addition, data may be omitted in some cases. CLINICAL DECISIONS SHOULD BE BASED ON THE PRIMARY CLINICAL RECORDS. [facility]. provides no warranty or guarantee of the accuracy or completeness of information in this document.
== END 2024-10-26 10:29 | disposition home or self-care (01) ==
LOC: MAMMO 10:28
PROVIDERS: PCP Family Medicine; Visit Provider Obstetrics & Gynecology
DX: Z12.31 Encounter for screening mammogram for malignant neoplasm of breast (principal); Z80.3 Family history of malignant neoplasm of breast; Z80.1 Family history of malignant neoplasm of trachea, bronchus and lung
CPT/HCPCS: 77063; 77067